=== PATIENT | female | born 1960 | race Caucasian/White ===

== ENCOUNTER 2018-12-20 21:56 | Emergency (ER) | payer SELFPAY ==
[~2018-12-20] VITALS: Ht 160 cm; Wt 74.8 kg
--- OUTSIDE RECORDS SUMMARY | 2018-12-20 22:01 | XMS REPORT | Continuity of Care Document ---
Author Organization Unknown Address Unknown Allergies Active Description Code Type Severity Reaction Onset Reported/Identified Relationship to Patient Clinical Status Yes NO NAME AVAILABLE 39916 DRUG N/A N/A Medications Medication Packaging Start Date Stop Date Route Dosage Sig INFLUENZA VAC SPLIT QUAD 0.5 ML IM THERESA 09/08/2017 Intramuscular 0.5 Prior to discharge PNEUMOCOCCAL VAC POLYVALENT 25 MCG/0.5ML IJ INJ 09/08/2017 Subcutaneous 0.5 Prior to discharge TRAZODONE HCL 100 MG PO TABS 09/08/2017 Oral 100 BEDTIME PRN OLANZAPINE 10 MG PO TBDP 09/08/2017 Oral 10 2 TIMES DAILY PRN OLANZAPINE 10 MG PO TABS 09/08/2017 Oral 10 2 TIMES DAILY PRN QUETIAPINE FUMARATE 25 MG PO TABS 09/08/2017 Oral 25 4 TIMES DAILY PRN MAGNESIUM HYDROXIDE 400 MG/5ML PO SUSP 09/08/2017 Oral 30 DAILY PRN ALUM T MAG HYDROXIDE-SIMETH 200-200-20 MG/5ML PO SUSP 09/08/2017 Oral 30 4 TIMES DAILY PRN ACETAMINOPHEN 325 MG PO TABS 09/08/2017 Oral 650 EVERY 6 HOURS PRN NICOTINE POLACRILEX 2 MG MT GUM 09/08/2017 Oral 2 EVERY 1 HOUR PRN NICOTINE POLACRILEX 2 MG MT LOZG 09/08/2017 Oral 2 EVERY 1 HOUR PRN ALBUTEROL SULFATE HFA 108 (90 BASE) MCG/ACT IN AERS 09/08/2017 Inhalation 2 EVERY 4 HOURS PRN NICOTINE 14 MG/24HR TD PT24 09/08/2017 Transdermal 1 DAILY NICOTINE 21 MG/24HR TD PT24 09/08/2017 Transdermal 1 DAILY LAMOTRIGINE 25 MG PO TABS 09/08/2017 Oral 75 2 TIMES DAILY LAMOTRIGINE 100 MG PO TABS 09/09/2017 Oral 100 DAILY AT 1900 LAMOTRIGINE 25 MG PO TABS 09/10/2017 Oral 75 DAILY LAMOTRIGINE 100 MG PO TABS 09/10/2017 Oral 100 2 TIMES DAILY Problems Date Dx Coded Attending Type Code Diagnosis Diagnosed By 09/12/2017 CHINEDU LIU V [id number] Suicidal 09/12/2017 CHINEDU LIU P 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 Results Test Result Range LIPID PANEL - 09/10/17 05:37 CHOLESTEROL 192 mg/dL <=200 HDL CHOLESTEROL 50 mg/dL 40-90 LDL CHOLESTEROL 126 mg/dL NON-HDL CHOLESTEROL 142 mg/dL 0-129 TRIGLYCERIDE 82 mg/dL 0-149 TSH - 04/12/18 13:31 TSH 0.95 mIU/L 0.40-4.50 Encounters ACCT No. Visit Date/Time Discharge Status Pt. Type Provider Facility Loc./Unit Complaint [id number] 09/08/2017 20:38:00 09/12/2017 11:40:00 DIS Inpatient CHINEDU LIU [facility] [id number] 09/08/2017 22:02:19 Document Registration [id number] 04/12/2018 13:00:00 Document Registration
--- OUTSIDE RECORDS SUMMARY | 2018-12-20 22:01 | XMS REPORT ---
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 Name Role Phone DANE SIERRA Unavailable PROBLEMS Unknown Problems ALLERGIES No Known Allergies ENCOUNTERS Encounter Location Date Diagnosis [facility] [address] [facility] [id number] [address] Apr, Arthralgia of right knee M25.561 ; Pain of left hip joint M25.552 ; Acute pain of left shoulder M25.512 ; Screening for diabetes mellitus Z13.1 ; Screening for thyroid disorder Z13.29 and Screening for hyperlipidemia Z13.220 IMMUNIZATIONS No Known Immunizations SOCIAL HISTORY Never Assessed REASON FOR VISIT Establish Care. Patient states she is having trouble moving her left shoulder/ar m. Everytime she moves, it pops and sometimes it goes numb. Injury to that arm o n February 01 while swimming and playing catch. The shoulder popped loudly and pt h as been having problems since. Right knee has been bothering patient, patient tw isted the right knee in 1996. Two weeks ago, patient was swimming and someone ac cidentally kicked her right knee. Left hip pain, no known injury. Patient says h er hips pops out of place. Pt brought in medication today. Pt has not seen a [facility] provider for "a long time." She does, see [facility] PLAN OF CARE Activity Details Follow Up 3 months or as indicated by lab Reason: VITAL SIGNS Height 63 in 2018-04-12 Weight 174 lbs 2018-04-12 Temperature 98.7 degrees Fahrenheit 2018-04-12 Heart Rate 70 bpm 2018-04-12 Respiratory Rate 20 2018-04-12 BMI 30.82 kg/m2 2018-04-12 Blood pressure systolic 128 mmHg 2018-04-12 Blood pressure diastolic 74 mmHg 2018-04-12 MEDICATIONS Medication Instructions Dosage Frequency Start Date End Date Duration Status Lamictal 100 MG Orally Twice a day 1 tablet 12h Active Latuda 20 MG Orally Once a day 1 tablet with food 24h Active RESULTS No Results PROCEDURES Procedure Date Ordered Result Body Site X-RAY EXAM OF KNEE, 3 Apr 12, 2018 X-RAY EXAM OF SHOULDER Apr 12, 2018 ASSAY THYROID STIM HORMONE Apr 12, 2018 GLYCATED HEMOGLOBIN TEST Apr 12, 2018 COMPREHEN METABOLIC PANEL Apr 12, 2018 X-RAY EXAM HIP UNI 2-3 VIEWS Apr 12, 2018 COMPLETE CBC W/AUTO DIFF WBC Apr 12, 2018 LIPID PANEL Apr 12, 2018 INSTRUCTIONS MEDICATIONS ADMINISTERED No Known Medications MEDICAL (GENERAL) HISTORY Type Description Date Medical History Bipolar Medical History PTSD Medical History Depression Medical History Vertigo Medical History Stroke 2008 Medical History COPD Surgical History Appendix Surgical History Total Hysterectomy 1980 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
[2018-12-20] MEDS ORDERED: LATUDA 20 MG (22:15)
[2018-12-20] MEDS ORDERED: TRAZODONE 100 MG (22:15)
[2018-12-20] MEDS ORDERED: KETOROLAC 30 MG/ML VIAL IM ONE ×2 (22:30→22:45)
--- NOTE | 2018-12-20 23:06 | ED Lower Extremity ---
General Chief Complaint: Lower Extremity Stated Complaint: LT HIP PAIN & SWOLLEN Nursing Triage Note: pt states she felt her hip "pop" 1 year ago, started hurting again 1 week ago and thinks it is out of place Nursing Sepsis Screen: No Definite Risk Source: patient Exam Limitations: no limitations History of Present Illness Date Seen by Provider: December 20, 2018 Time Seen by Provider: 22:11 Initial Comments This 4-year-old woman ambulates to the emergency room with a limp with complaints of left hip pain. She reports having an injury while climbing up a hill at [facility] in January. She felt her hip pop at that time and has had pain ever since. She states her hip "is going out of place a lot, I feel it moving". Pain is been worsening this week and she reports her pain is now a 10 over 10. She had been seen at [facility] last April. She reports x-rays were negative. She states MRI was advised but she cannot afford it. She used a lidocaine patch yesterday which did seem to help her quite a bit. Pain does sometimes radiate down her leg. She has occasional numbness of the left foot. She denies any bowel or bladder dysfunction. She has not taken any pain medications today. Allergies and Home Medications Allergies Coded Allergies: No Known Drug Allergies (Unverified , 12/20/18) Patient Home Medication List Home Medication List Reviewed: Yes Review of Systems Constitutional: no symptoms reported EENTM: no symptoms reported Respiratory: no symptoms reported Cardiovascular: no symptoms reported Gastrointestinal: no symptoms reported Genitourinary: no symptoms reported : No Musculoskeletal: see HPI Skin: no symptoms reported Psychiatric/Neurological: No Symptoms Reported Past Wekwuns-Qpbduh-Ontgus Hx Past Med/Social Hx: Reviewed and Corrections made Patient Social History Alcohol Use: Denies Use Recreational Drug Use: No Smoking Status: Current Everyday Smoker Type Used: Cigarettes Recent Foreign Travel: No Contact w/Someone Who Travel: No Recent Infectious Disease Expo: No Recent Hopitalizations: No Physical Abuse: No Sexual Abuse: No Fear: No Seasonal Allergies Seasonal Allergies: No Past Medical History Surgeries: Yes Hysterectomy Respiratory: Yes COPD Cardiac: No Neurological: Yes TIA, Vertigo Genitourinary: No Gastrointestinal: No Musculoskeletal: No Endocrine: No HEENT: No Cancer: No Psychosocial: Yes Anxiety, PTSD, Bipolar, Depression Integumentary: No Blood Disorders: No Physical Exam Vital Signs Vital Signs - First Documented 12/20/18 22:15 Temp 98.7 Pulse 93 Resp 18 B/P (MAP) 127/73 (91) Pulse Ox 98 O2 Delivery Room Air Capillary Refill : Less Than 3 Seconds Height, Weight, BMI Height: 5'3.00" Weight: 165lbs. oz. 74.860880ft; BMI Method:Stated General Appearance: WD/WN, no apparent distress HEENT: normal ENT inspection Neck: normal inspection Cardiovascular: regular rate, rhythm, no edema, no murmur Respiratory: lungs clear, normal breath sounds, no respiratory distress Hips: bilateral hip normal inspection, bilateral hip normal range of motion, bilateral hip no evidence of injury; left hip pain, left hip other (mild pain in the hip with external rotation and anterior palpation. Area of maximum tenderness is over the left SI joint. No tenderness or pain below the hip.) Legs: bilateral leg non-tender, bilateral leg normal inspection, bilateral leg normal range of motion, bilateral leg no evidence of injury Knees: bilateral knee non-tender, bilateral knee normal inspection, bilateral knee normal range of motion, bilateral knee no evidence of injury Ankles: bilateral ankle non-tender, bilateral ankle normal inspection, bilateral ankle normal range of motion, bilateral ankle no evidence of injury Feet: bilateral foot non-tender, bilateral foot normal inspection, bilateral foot normal range of motion, bilateral foot no evidence of injury Neurologic/Tendon: normal sensation 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, no motor/sensory deficits, alert, normal mood/affect, oriented x 3 Skin: normal color, warm/dry Progress/Results/Core Measures Results/Orders My Orders Orders - CLINT HAYES MD Ketorolac Injection (Toradol Injection) (12/20/18 22:30) Ketorolac Injection (Toradol Injection) (12/20/18 22:45) Medications Given in ED Current Medications Medications Dose Ordered Sig/Bronson Route Start Time Stop Time Status Last Admin Dose Admin Ketorolac Tromethamine 30 mg ONCE ONCE IM 12/20/18 22:30 12/20/18 22:31 DC 12/20/18 22:30 30 MG Vital Signs/I&O 12/20/18 12/20/18 22:15 23:17 Temp 98.7 Pulse 93 81 Resp 18 18 B/P (MAP) 127/73 (91) 105/61 (76) Pulse Ox 98 93 O2 Delivery Room Air Room Air Blood Pressure Mean: 91 Progress Progress Note : Progress Note Patient had good results with Toradol injection. She had improved ambulation with pain control. See discharge instructions. Departure Impression Primary Impression: Sacroiliitis Additional Impression: Left hip pain Disposition: HOME, SELF-CARE Condition: Improved Departure-Patient Inst. Decision time for Depature: 23:05 Referrals: [facility] (PCP) Primary Care Physician Patient Instructions: Sacroiliac Joint Pain Add. Discharge Instructions: You may take ibuprofen up to 600 mg every 6 hours as needed for pain. You may also take Tylenol (acetaminophen) up to 1000 mg every 6 hours as needed. Take ibuprofen with food or milk to avoid stomach upset. You may also use a lidocaine patch such as Salonpas purchased [id number]. Return to care if symptoms are worsening despite these treatments. Follow-up with your primary care provider within the next couple of weeks. All discharge instructions reviewed with patient and/or family. Voiced understanding. CLINT HAYES MD December 20, 2018 23:06
[2018-12-20 23:17] VITALS: BP 105/61
== END 2018-12-20 23:17 | disposition home or self-care (01) ==
LOC: ER FS 21:57
DX: M46.1 Sacroiliitis, not elsewhere classified (principal); M25.552 Pain in left hip; J44.9 Chronic obstructive pulmonary disease, unspecified; F41.9 Anxiety disorder, unspecified; F43.10 Post-traumatic stress disorder, unspecified; F31.9 Bipolar disorder, unspecified; F17.210 Nicotine dependence, cigarettes, uncomplicated; Z86.73 Personal history of transient ischemic attack (TIA), and cerebral infarction without residual deficits; Z90.710 Acquired absence of both cervix and uterus
CPT/HCPCS: 99284

== ENCOUNTER 2019-01-23 11:37 | Emergency (ER) | payer SELFPAY ==
[~2019-01-23] VITALS: Ht 160 cm; Wt 77.1 kg
[~2019-01-23 11:37] MED LIST: LATUDA 20 MG; TRAZODONE 100 MG
--- OUTSIDE RECORDS SUMMARY | 2019-01-23 11:43 | XMS REPORT | Continuity of Care Document ---
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, recurrent, severe with psychotic symptoms (HCC) 12/22/2018 CLINT AHYES MD Ot F17.210 NICOTINE DEPENDENCE, CIGARETTES, UNCOMPL 12/22/2018 CLINT HAYES MD Ot F31.9 BIPOLAR DISORDER, UNSPECIFIED 12/22/2018 CLINT HAYES MD Ot F41.9 ANXIETY DISORDER, UNSPECIFIED 12/22/2018 CLINT HAYES MD Ot F43.10 POST-TRAUMATIC STRESS DISORDER, UNSPECIF 12/22/2018 CLINT HAYES MD Ot J44.9 CHRONIC OBSTRUCTIVE PULMONARY DISEASE, U 12/22/2018 CLINT HAYES MD Ot M25.552 PAIN IN LEFT HIP 12/22/2018 CLINT HAYES MD Ot M46.1 SACROILIITIS, NOT ELSEWHERE CLASSIFIED 12/22/2018 CLINT HAYES MD Ot Z86.73 PRSNL HX OF TIA (TIA), AND CEREB INFRC W 12/22/2018 CLINT HAYES MD Ot Z90.710 ACQUIRED ABSENCE OF BOTH CERVIX AND UTER Procedures There is no data. Results Test Result Range LIPID PANEL - 09/10/17 05:37 CHOLESTEROL 192 mg/dL <=200 HDL CHOLESTEROL 50 mg/dL 40-90 LDL CHOLESTEROL 126 mg/dL NON-HDL CHOLESTEROL 142 mg/dL 0-129 TRIGLYCERIDE 82 mg/dL 0-149 Encounters ACCT No. Visit Date/Time Discharge Status Pt. Type Provider Facility Loc./Unit Complaint [id number] 09/08/2017 20:38:00 09/12/2017 11:40:00 DIS Inpatient CHINEDU LIU [facility] [id number] 09/08/2017 22:02:19 Document Registration [id number] 12/20/2018 21:57:00 12/20/2018 23:17:00 DIS Outpatient CLINT HAYES MD [facility] ER FS LT HIP PAIN SWOLLEN
--- NOTE | 2019-01-23 11:55 | NUR ---
UP TO BATHROOM AT THIS TIME.
--- NOTE | 2019-01-23 11:58 | ED Abdominal Pain ---
General Chief Complaint: Abdominal/GI Problems Stated Complaint: ABD CRAMPS Nursing Triage Note: ARRIVED VIA AMB TO ROOM 03. COMPLAINS OF LEFT LOWER ABD PAIN THAT RADIATES UP FOR TWO DAYS. DENIES N/V/D Sepsis Screen: No Definite Risk Source of Information: Patient Exam Limitations: No Limitations History of Present Illness Date Seen by Provider: Jan 23, 2019 Time Seen by Provider: 11:44 Initial Comments The patient presents to ER by private conveyance with chief complaint of one day progressively worsening 8 out of 10 left-sided abdominal cramping now cramping and pain. Last night when it started she was just gas and she took some Tums and drink some milk but it did not go away and only got worse. She had a bowel movement 2 days ago and was normal formed. She does not have a history of dive rticulitis, kidney stones. She has no dysuria, discharge, fevers nausea or chest pain. Says the pain starts in her left lower abdomen and radiates up towards her left upper abdomen. She has no sore throat or swollen lymph nodes. No significant weight loss or gain. She had a colonoscopy 11 years ago that was normal by a doctor in [place], [place]. She has had appendectomy, hysterectomy, bilateral oophorectomy. The patient said when she was 49 years old she was told after a episode of vertigo on getting a CT of her head that she had evidence of an old stroke which she thinks is related to her use of cocaine. Her last use was 2003. She does not drink or use drugs now but still smokes 1/2-2 packs of cigarettes per day. Allergies and Home Medications Allergies Coded Allergies: No Known Drug Allergies (Unverified , 12/20/18) Home Medications Polyethylene Glycol 3350 17 Gm Powd.pack, 17 GM PO BID PRN Prescribed by: NOLAN ARAUJO on 01/23/19 1240 Patient Home Medication List Home Medication List Reviewed: Yes Review of Systems Review of Systems Constitutional: No chills, No diaphoresis EENTM: No Blurred Vision, No Double Vision Respiratory: Denies Cough, Denies Shortness of Air Cardiovascular: Denies Chest Pain, Denies Edema Gastrointestinal: See HPI, Abdominal Pain; Denies Constipated, Denies Diarrhea, Denies Nausea Genitourinary: Denies Burning, Denies Discharge, Denies Drainage Musculoskeletal: No back pain, No joint pain Past Ervuerm-Rhnugx-Ilcliq Hx Patient Social History Alcohol Use: Denies Use Recreational Drug Use: No Smoking Status: Current Everyday Smoker Type Used: Cigarettes (1.5-2 ppd) Recent Foreign Travel: No Contact w/Someone Who Travel: No Recent Infectious Disease Expo: No Recent Hopitalizations: No Seasonal Allergies Seasonal Allergies: No Past Medical History Surgeries: Yes Appendectomy, Hysterectomy Respiratory: Yes COPD Cardiac: No Neurological: Yes Stroke, TIA, Vertigo Genitourinary: No Gastrointestinal: No Musculoskeletal: No Endocrine: No HEENT: No Cancer: No Psychosocial: Yes Anxiety, PTSD, Bipolar, Depression Integumentary: No Blood Disorders: No Physical Exam Vital Signs Vital Signs - First Documented 01/23/19 11:40 Temp 98.0 Pulse 81 Resp 16 B/P (MAP) 170/84 (112) Pulse Ox 96 O2 Delivery Room Air Capillary Refill : Less Than 3 Seconds Height/Weight/BMI Height: 5'3.00" Weight: 170lbs. oz. 77.976625ap; BMI Method:Stated General Appearance: WD/WN, mild distress HEENT: PERRL/EOMI, pharynx normal Respiratory: lungs clear, normal breath sounds, no respiratory distress, no accessory muscle use Cardiovascular: normal peripheral pulses, regular rate, rhythm, no edema Peripheral Pulses: 2+ Dorsalis Pedis (R), 2+ Left Dors-Pedis (L) Gastrointestinal: normal bowel sounds, soft, no organomegaly, no pulsatile mass, tenderness (left upper and lower quadrant) Extremities: normal range of motion, normal inspection, normal capillary refill Back: normal inspection, CVA tenderness (L) Neurologic/Psychiatric: alert, normal mood/affect, oriented x 3 Skin: normal color, warm/dry Focused Exam Lactate Level 01/23/19 12:02: Lactic Acid Level 1.12 Lactic Acid Level Laboratory Tests Test 01/23/19 12:02 Lactic Acid Level 1.12 MMOL/L (0.50-2.00) Progress/Results/Core Measures Results/Orders Lab Results Laboratory Tests Test 01/23/19 11:53 01/23/19 11:59 01/23/19 12:02 Range/Units White Blood Count 12.4 H 4.3-11.0 10^3/uL Red Blood Count 5.32 4.35-5.85 10^6/uL Hemoglobin 16.0 11.5-16.0 G/DL Hematocrit 47 35-52 % Mean Corpuscular Volume 87 80-99 FL Mean Corpuscular Hemoglobin 30 25-34 PG Mean Corpuscular Hemoglobin Concent 34 32-36 G/DL Red Cell Distribution Width 12.3 10.0-14.5 % Platelet Count 268 130-400 10^3/uL Mean Platelet Volume 10.5 H 7.4-10.4 FL Neutrophils (%) (Auto) 70 42-75 % Lymphocytes (%) (Auto) 18 12-44 % Monocytes (%) (Auto) 11 0-12 % Eosinophils (%) (Auto) 1 0-10 % Basophils (%) (Auto) 1 0-10 % Neutrophils # (Auto) 8.6 H 1.8-7.8 X 10^3 Lymphocytes # (Auto) 2.3 1.0-4.0 X 10^3 Monocytes # (Auto) 1.4 H 0.0-1.0 X 10^3 Eosinophils # (Auto) 0.1 0.0-0.3 10^3/uL Basophils # (Auto) 0.1 0.0-0.1 10^3/uL Sodium Level 138 135-145 MMOL/L Potassium Level 4.2 3.6-5.0 MMOL/L Chloride Level 99 98-107 MMOL/L Carbon Dioxide Level 25 21-32 MMOL/L Anion Gap 14 5-14 MMOL/L Blood Urea Nitrogen 22 H 7-18 MG/DL Creatinine 0.79 0.60-1.30 MG/DL Estimat Glomerular Filtration Rate > 60 BUN/Creatinine Ratio 28 Glucose Level 117 H 70-105 MG/DL Calcium Level 10.1 8.5-10.1 MG/DL Corrected Calcium 9.7 8.5-10.1 MG/DL Total Bilirubin 0.5 0.1-1.0 MG/DL Aspartate Amino Transf (AST/SGOT) 12 5-34 U/L Alanine Aminotransferase (ALT/SGPT) < 5 0-55 U/L Alkaline Phosphatase 77 40-136 U/L Total Protein 7.9 6.4-8.2 GM/DL Albumin 4.5 3.2-4.5 GM/DL Lipase 31 8-78 U/L Urine Color YELLOW Urine Clarity SLT CLOUDY Urine pH 5.5 5-9 Urine Specific [place] >=1.030 1.016-1.022 Urine Protein 1+ H NEGATIVE Urine Glucose (UA) NEGATIVE NEGATIVE Urine Ketones 1+ H NEGATIVE Urine Nitrite NEGATIVE NEGATIVE Urine Bilirubin 2+ H NEGATIVE Urine Urobilinogen 1.0 NORMAL MG/DL Urine Leukocyte Esterase NEGATIVE NEGATIVE Urine RBC (Auto) 3+ H NEGATIVE Urine RBC RARE /HPF Urine WBC 0-2 /HPF Urine Squamous Epithelial Cells 10-25 H /HPF Urine Crystals NONE /LPF Urine Bacteria LARGE H /HPF Urine Casts NONE /LPF Urine Mucus SMALL H /LPF Urine Culture Indicated NO Lactic Acid Level 1.12 0.50-2.00 MMOL/L My Orders Orders - NOLAN ARAUJO Ua Culture If Indicated (01/23/19 11:39) Cbc With Automated Diff (01/23/19 11:51) Comprehensive Metabolic Panel (01/23/19 11:51) Lipase (01/23/19 11:51) Ed Iv/Invasive Line Start (01/23/19 11:51) Ketorolac Injection (Toradol Injection) (01/23/19 12:00) Lactic Acid Analyzer (01/23/19 11:59) Ed Iv/Invasive Line Start (01/23/19 12:33) Ns Iv 500 Ml (Sodium Chloride 0.9%) (01/23/19 12:33) Abdomen (Kub) 1 View (01/23/19 12:36) Medications Given in ED Current Medications Medications Dose Ordered Sig/Bronson Route Start Time Stop Time Status Last Admin Dose Admin Ketorolac Tromethamine 30 mg ONCE ONCE IVP 01/23/19 12:00 01/23/19 12:01 DC 01/23/19 11:57 30 MG Sodium Chloride 500 ml @ 0 mls/hr Q0M ONCE IV 01/23/19 12:33 01/23/19 12:34 DC 01/23/19 12:39 500 MLS/HR Vital Signs/I&O 01/23/19 11:40 Temp 98.0 Pulse 81 Resp 16 B/P (MAP) 170/84 (112) Pulse Ox 96 O2 Delivery Room Air Blood Pressure Mean: 112 Progress Progress Note #1: Time: 11:56 Progress Note UTI versus kidney stone versus constipation/obstruction versus adhesions versus bowel ischemia versus other. Toradol for pain which she says was very effective in the past for other pain management symptoms. Blood work and urine including lactate and lipase. Progress Note #2: Time: 12:37 Progress Note The patient's belly is flat, soft and her pain is almost completely gone with just a dose of Toradol. We will obtain a flat plate x-ray and if that's okay then we'll send her home with a regimen of Gas-X and MiraLAX and follow up with primary care. Return precautions of been given. The patient agrees with this plan. Diagnostic Imaging Diagonstic Imaging: Xray Plain Films/CT/US/NM/MRI: abdomen (kub 1 v) Comments [facility]. [place], [place] NAME: DEMARIO ROBERTS [facility] REC#: [id number] PT STATUS: REG ER : 1960 PHYSICIAN: NOLAN ARAUJO MD ADMIT DATE: 01/23/19/ER FS Draft Date of Exam:01/23/19 ABDOMEN (KUB) 1 VIEW INDICATION: Left lower abdominal pain. TIME OF EXAM: 12:22 p.m. FINDINGS: A large amount of stool in the right colon is identified. Small bowel is nondilated. No free air is seen. No pathologic calcifications are identified. IMPRESSION: Moderate stool consistent with constipation. Dictated on workstation # [id number] Dict: 01/23/19 1250 Trans: 01/23/19 1253 [id number] Interpreted by: DAISY MARTINEZ MD Electronically signed by: Reviewed: Reviewed by Me Departure Impression Primary Impression: Obstipation Disposition: 01 HOME, SELF-CARE Condition: Improved Departure-Patient Inst. Decision time for Depature: 13:00 Referrals: NO,LOCAL PHYSICIAN (PCP/Family) Primary Care Physician Patient Instructions: Constipation, Adult (DC) Add. Discharge Instructions: set up machinist some [id number] Gas-X and use that in addition to taking up the MiraLAX and taking one capful putting it in a 6-8 ounces glass of fluid of your choice 2-3 times a day until you have completely cleaned out your colon. If your symptoms improve over the next couple days then you might consider doing a dose of MiraLAX a couple times a week to stay regular. If your symptoms persist and should follow-up with her primary care doctor or if it becomes severe and intractable then you should return to the nearest ER for further evaluation. All discharge instructions reviewed with patient and/or family. Voiced understanding. Scripts Polyethylene Glycol 3350 (Miralax) 17 Gm Powd.pack 17 GM PO BID PRN for 3 Days, #1 EACH 0 Refills Prov: NOLAN ARAUJO 01/23/19 NOLAN ARAUJO Jan 23, 2019 11:58
[2019-01-23] MEDS ORDERED: KETOROLAC 30 MG/ML VIAL IVP ONE (12:00)
[2019-01-23 12:01] LABS: HEMATOCRIT 47 % (35-52); MEAN CORPUSCULAR HEMOGLOBIN 30 PG (25-34); MEAN CORPUSCULAR VOLUME 87 FL (80-99); WHITE BLOOD COUNT 12.4 10^3/uL (4.3-11.0)
[2019-01-23 12:02] LABS: BASOPHILS # (AUTO) 0.1 10^3/uL (0.0-0.1); BASOPHILS % (AUTO) 1 % (0-10); EOSINOPHILS # (AUTO) 0.1 10^3/uL (0.0-0.3); EOSINOPHILS % (AUTO) 1 % (0-10); LYMPHOCYTES # (AUTO) 2.3 X 10^3 (1.0-4.0); LYMPHOCYTES % (AUTO) 18 % (12-44); MEAN CORPUSCULAR HGB CONC 34 G/DL (32-36); MEAN PLATELET VOLUME 10.5 FL (7.4-10.4); MONOCYTES # (AUTO) 1.4 X 10^3 (0.0-1.0); MONOCYTES % (AUTO) 11 % (0-12); NEUTROPHILS # (AUTO) 8.6 X 10^3 (1.8-7.8); NEUTROPHILS % (AUTO) 70 % (42-75); PLATELET COUNT 268 10^3/uL (130-400); RED CELL DISTRIBUTION WIDTH 12.3 % (10.0-14.5)
[2019-01-23 12:23] LABS: ALKALINE PHOSPHATASE 77 U/L (40-136); BILIRUBIN,TOTAL 0.5 MG/DL (0.1-1.0); BUN/CREATININE RATIO 28; CALCIUM 10.1 MG/DL (8.5-10.1); CARBON DIOXIDE 25 MMOL/L (21-32); CHLORIDE 99 MMOL/L (98-107); CREATININE SERUM 0.79 MG/DL (0.60-1.30); GFR ESTIMATED > 60; GLUCOSE 117 MG/DL (70-105); POTASSIUM 4.2 MMOL/L (3.6-5.0); SODIUM 138 MMOL/L (135-145)
[2019-01-23 12:24] LABS: ALANINE AMINOTRANSFERASE < 5 U/L (0-55); ALBUMIN 4.5 GM/DL (3.2-4.5); LIPASE 31 U/L (8-78); TOTAL PROTEIN 7.9 GM/DL (6.4-8.2)
[2019-01-23 12:30] LABS: CLARITY,URINE SLT CLOUDY; COLOR,URINE YELLOW; GLUCOSE, URINE (UA) NEGATIVE (NEGATIVE); KETONES,URINE 1+ (NEGATIVE); NITRITE,URINE NEGATIVE (NEGATIVE); PH,URINE 5.5 (5-9); PROTEIN,URINE 1+ (NEGATIVE)
[2019-01-23 12:31] LABS: BACTERIA,URINE LARGE /HPF; BILIRUBIN,URINE 2+ (NEGATIVE); LEUKOCYTE ESTERASE ,URINE NEGATIVE (NEGATIVE); RBC,URINE RARE /HPF; WBC,URINE 0-2 /HPF
[2019-01-23] MEDS ORDERED: NS IV 500 ML 500 ML IV ONE (12:33)
--- NOTE | 2019-01-23 12:34 | NUR ---
IN ROOM TALKING TO PT AT THIS TIME.
[2019-01-23] MEDS ORDERED: POLY17PO6 PO (12:40)
--- NOTE | 2019-01-23 12:54 | Diagnostic Imaging Report ---
INDICATION: Left lower abdominal pain. TIME OF EXAM: 12:22 p.m. FINDINGS: A large amount of stool in the right colon is identified. Small bowel is nondilated. No free air is seen. No pathologic calcifications are identified. IMPRESSION: Moderate stool consistent with constipation. Dictated by: Dictated on workstation # [id number]
--- NOTE | 2019-01-23 12:54 | NUR ---
PT STATES SHE FEELS MUCH BETTER.
[2019-01-23 13:16] VITALS: BP 147/84
== END 2019-01-23 13:16 | disposition home or self-care (01) ==
LOC: EDUNIT# 11:37 → ER FS 11:39
DX: K59.00 Constipation, unspecified (principal); J44.9 Chronic obstructive pulmonary disease, unspecified; F31.9 Bipolar disorder, unspecified; F43.10 Post-traumatic stress disorder, unspecified; F41.9 Anxiety disorder, unspecified; F17.210 Nicotine dependence, cigarettes, uncomplicated; Z90.49 Acquired absence of other specified parts of digestive tract; Z90.710 Acquired absence of both cervix and uterus; Z90.722 Acquired absence of ovaries, bilateral; Z86.73 Personal history of transient ischemic attack (TIA), and cerebral infarction without residual deficits
CPT/HCPCS: 36415; 74018; 80053; 81000; 83605; 83690; 85025; 96361; 96374

== ENCOUNTER 2019-01-30 21:28 | Emergency (ER) | payer SELFPAY ==
[~2019-01-30] VITALS: Ht 160 cm; Wt 70.3 kg
[~2019-01-30 21:28] MED LIST changes: +POLY17PO6 PO
--- OUTSIDE RECORDS SUMMARY | 2019-01-30 21:33 | XMS REPORT | Continuity of Care Document ---
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, recurrent, severe with psychotic symptoms (HCC) 12/20/2018 CLINT HAYES MD Ot F17.210 NICOTINE DEPENDENCE, CIGARETTES, UNCOMPL 12/20/2018 CLINT HAYES MD Ot F31.9 BIPOLAR DISORDER, UNSPECIFIED 12/20/2018 CLINT HAYES MD Ot F41.9 ANXIETY DISORDER, UNSPECIFIED 12/20/2018 CLINT HAYES MD Ot F43.10 POST-TRAUMATIC STRESS DISORDER, UNSPECIF 12/20/2018 CLINT HAYES MD Ot J44.9 CHRONIC OBSTRUCTIVE PULMONARY DISEASE, U 12/20/2018 CLINT HAYES MD Ot M25.552 PAIN IN LEFT HIP 12/20/2018 CLINT HAYES MD Ot M46.1 SACROILIITIS, NOT ELSEWHERE CLASSIFIED 12/20/2018 CLINT HAYES MD Ot Z86.73 PRSNL HX OF TIA (TIA), AND CEREB INFRC W 12/20/2018 CLINT HAYES MD Ot Z90.710 ACQUIRED ABSENCE OF BOTH CERVIX AND UTER 12/22/2018 CLINT HAYES MD Ot F17.210 NICOTINE DEPENDENCE, CIGARETTES, UNCOMPL [...] ACQUIRED ABSENCE OF BOTH CERVIX AND UTER 01/25/2019 NOLAN ARAUJO MD Ot F17.210 NICOTINE DEPENDENCE, CIGARETTES, UNCOMPL 01/25/2019 NOLAN ARAUJO MD Ot F31.9 BIPOLAR DISORDER, UNSPECIFIED 01/25/2019 NOLAN ARAUJO MD Ot F41.9 ANXIETY DISORDER, UNSPECIFIED 01/25/2019 NOLAN ARAUJO MD Ot F43.10 POST-TRAUMATIC STRESS DISORDER, UNSPECIF 01/25/2019 NOLAN ARAUJO MD Ot J44.9 CHRONIC OBSTRUCTIVE PULMONARY DISEASE, U 01/25/2019 NOLAN ARAUJO MD Ot K59.00 CONSTIPATION, UNSPECIFIED 01/25/2019 NOLAN ARAUJO MD Ot R10.32 LEFT LOWER QUADRANT PAIN 01/25/2019 NOLAN ARAUJO MD Ot Z86.73 PRSNL HX OF TIA (TIA), AND CEREB INFRC W 01/25/2019 NOLAN ARAUJO MD Ot Z90.49 ACQUIRED ABSENCE OF OTHER SPECIFIED PART 01/25/2019 NOLAN ARAUJO MD Ot Z90.710 ACQUIRED ABSENCE OF BOTH CERVIX AND UTER 01/25/2019 NOLAN ARAUJO MD Ot Z90.722 ACQUIRED ABSENCE OF OVARIES, BILATERAL Procedures There is no data. Results Test Result Range LIPID PANEL - 09/10/17 05:37 CHOLESTEROL 192 mg/dL <=200 HDL CHOLESTEROL 50 mg/dL 40-90 LDL CHOLESTEROL 126 mg/dL NON-HDL CHOLESTEROL 142 mg/dL 0-129 TRIGLYCERIDE 82 mg/dL 0-149 Complete blood count (CBC) with automated white blood cell (WBC) differential - 01/23/19 11:53 Blood leukocytes automated count (number/volume) 12.4 10*3/uL 4.3-11.0 Blood erythrocytes automated count (number/volume) 5.32 10*6/uL 4.35-5.85 Venous blood hemoglobin measurement (mass/volume) 16.0 g/dL 11.5-16.0 Blood hematocrit (volume fraction) 47 % 35-52 Automated erythrocyte mean corpuscular volume 87 [foz_us] 80-99 Automated erythrocyte mean corpuscular hemoglobin (mass per erythrocyte) 30 pg 25-34 Automated erythrocyte mean corpuscular hemoglobin concentration measurement (mass/volume) 34 g/dL 32-36 Automated erythrocyte distribution width ratio 12.3 % 10.0- 14.5 Automated blood platelet count (count/volume) 268 10*3/uL 130-400 Automated blood platelet mean volume measurement 10.5 [foz_us] 7.4-10.4 Automated blood neutrophils/100 leukocytes 70 % 42-75 Automated blood lymphocytes/100 leukocytes 18 % 12-44 Blood monocytes/100 leukocytes 11 % 0-12 Automated blood eosinophils/100 leukocytes 1 % 0-10 Automated blood basophils/100 leukocytes 1 % 0-10 Blood neutrophils automated count (number/volume) 8.6 10*3 1.8-7.8 Blood lymphocytes automated count (number/volume) 2.3 10*3 1.0-4.0 Blood monocytes automated count (number/volume) 1.4 10*3 0.0- 1.0 Automated eosinophil count 0.1 10*3/uL 0.0-0.3 Automated blood basophil count (count/volume) 0.1 10*3/uL 0.0-0.1 Comprehensive metabolic panel - 01/23/19 11:53 Serum or plasma sodium measurement (moles/volume) 138 mmol/L 135-145 Serum or plasma potassium measurement (moles/volume) 4.2 mmol/L 3.6-5.0 Serum or plasma chloride measurement (moles/volume) 99 mmol/L 98-107 Carbon dioxide 25 mmol/L 21-32 Serum or plasma anion gap determination (moles/volume) 14 mmol/L 5-14 Serum or plasma urea nitrogen measurement (mass/volume) 22 mg/dL 7-18 Serum or plasma creatinine measurement (mass/volume) 0.79 mg/dL 0.60-1.30 Serum or plasma urea nitrogen/creatinine mass ratio 28 NRG Serum or plasma creatinine measurement with calculation of estimated glomerular filtration rate > NRG Serum or plasma glucose measurement (mass/volume) 117 mg/dL 70-105 Serum or plasma calcium measurement (mass/volume) 10.1 mg/dL 8.5-10.1 Serum or plasma total bilirubin measurement (mass/volume) 0.5 mg/dL 0.1-1.0 Serum or plasma alkaline phosphatase measurement (enzymatic activity/volume) 77 U/L 40-136 Serum or plasma aspartate aminotransferase measurement (enzymatic activity/volume) 12 U/L 5-34 Serum or plasma alanine aminotransferase measurement (enzymatic activity/volume) < U/L 0-55 Serum or plasma protein measurement (mass/volume) 7.9 g/dL 6.4-8.2 Serum or plasma albumin measurement (mass/volume) 4.5 g/dL 3.2-4.5 CALCIUM CORRECTED 9.7 mg/dL 8.5-10.1 Lipase - 01/23/19 11:53 Lipase 31 U/L 8-78 Complete urinalysis with reflex to culture - 01/23/19 11:59 Urine color determination YELLOW NRG Urine clarity determination SLT CLOUDY NRG Urine pH measurement by test strip 5.5 5-9 Specific gravity of urine by test strip >= 1.016-1.022 Urine protein assay by test strip, semi-quantitative 1+ NEGATIVE Urine glucose detection by automated test strip NEGATIVE NEGATIVE Erythrocytes detection in urine sediment by light microscopy 3+ NEGATIVE Urine ketones detection by automated test strip 1+ NEGATIVE Urine nitrite detection by test strip NEGATIVE NEGATIVE Urine total bilirubin detection by test strip 2+ NEGATIVE Urine urobilinogen measurement by automated test strip (mass/volume) 1.0 mg/dL NORMAL Urine leukocyte esterase detection by dipstick NEGATIVE NEGATIVE Automated urine sediment erythrocyte count by microscopy (number/high power field) RARE NRG Automated urine sediment leukocyte count by microscopy (number/high power field) [HPF] NRG Bacteria detection in urine sediment by light microscopy LARGE NRG Squamous epithelial cells detection in urine sediment by light microscopy 10-25 NRG Crystals detection in urine sediment by light microscopy NONE NRG Casts detection in urine sediment by light microscopy NONE NRG Mucus detection in urine sediment by light microscopy SMALL NRG Complete urinalysis with reflex to culture NO NRG Blood lactic acid measurement (moles/volume) - 01/23/19 12:02 Blood lactic acid measurement (moles/volume) 1.12 mmol/L 0.50- 2.00 Encounters ACCT No. Visit Date/Time Discharge Status Pt. Type Provider Facility Loc./Unit Complaint [id number] 09/08/2017 20:38:00 09/12/2017 11:40:00 [id number] 09/08/2017 22:02:19 Document Registration [id number] 01/23/2019 11:39:00 01/23/2019 13:16:00 DIS Outpatient GAYLE CUETO, NOLAN [facility] FS ABD CRAMPS [id number] 12/20/2018 21:57:00 12/20/2018 23:17:00 DIS Emergency ABIGAIL CUETO, CLINT Malin [facility] ER FS LT HIP PAIN SWOLLEN
[2019-01-30 22:36] LABS: BILIRUBIN,URINE 2+ (NEGATIVE); CLARITY,URINE CLEAR; COLOR,URINE YELLOW; GLUCOSE, URINE (UA) NEGATIVE (NEGATIVE); KETONES,URINE TRACE (NEGATIVE); LEUKOCYTE ESTERASE ,URINE NEGATIVE (NEGATIVE); NITRITE,URINE NEGATIVE (NEGATIVE); PH,URINE 6.5 (5-9); PROTEIN,URINE TRACE (NEGATIVE)
[2019-01-30 22:37] LABS: SQUAMOUS EPITHELIAL CELL,UR 0-2 /HPF
--- NOTE | 2019-01-30 23:37 | ED GI ---
General Chief Complaint: Abdominal/GI Problems Stated Complaint: LOW ABD CRAMPING Nursing Triage Note: PT. STATED HER LOWER ABD PAIN STARTED AROUND 1400 TODAY. SHE HAS HAD 2 BOWEL MOVEMENTS TODAY. THE ABD. PAIN IS LOWER PELVIC AREA. Sepsis Screen: No Definite Risk Source of Information: Patient, Old Records, RN Notes Reviewed Exam Limitations: No Limitations History of Present Illness Date Seen by Provider: Jan 30, 2019 Time Seen by Provider: 21:47 Allergies and Home Medications Allergies Coded Allergies: No Known Drug Allergies (Unverified , 01/30/19) Home Medications Polyethylene Glycol 3350 17 Gm Powd.pack, 17 GM PO BID PRN Prescribed by: NOLAN ARAUJO on 01/23/19 1240 Past Unydcmt-Rcmswg-Lagxst Hx Patient Social History Type Used: Cigarettes Recent Foreign Travel: No Contact w/Someone Who Travel: No Recent Infectious Disease Expo: No Recent Hopitalizations: No Physical Abuse: No Sexual Abuse: No Mistreated: No Fear: No Seasonal Allergies Seasonal Allergies: No Past Medical History Surgeries: Yes Appendectomy, Hysterectomy Respiratory: Yes COPD Cardiac: No Neurological: Yes Stroke, TIA, Vertigo Genitourinary: No Gastrointestinal: No Musculoskeletal: No Endocrine: No HEENT: No Cancer: No Psychosocial: Yes Anxiety, PTSD, Bipolar, Depression Integumentary: No Blood Disorders: No Physical Exam Vital Signs Vital Signs - First Documented 01/30/19 22:20 Temp 98.6 Pulse 80 Resp 22 B/P (MAP) 143/93 (110) O2 Delivery Room Air Capillary Refill : Less Than 3 Seconds Height/Weight/BMI Height: 5'3.00" Weight: 155lbs. oz. 70.495500zh; BMI Method:Stated Progress/Results/Core Measures Results/Orders Lab Results Laboratory Tests Test 01/30/19 22:22 Range/Units Urine Color YELLOW Urine Clarity CLEAR Urine pH 6.5 5-9 Urine Specific [place] 1.025 H 1.016-1.022 Urine Protein TRACE NEGATIVE Urine Glucose (UA) NEGATIVE NEGATIVE Urine Ketones TRACE H NEGATIVE Urine Nitrite NEGATIVE NEGATIVE Urine Bilirubin 2+ H NEGATIVE Urine Urobilinogen 4.0 NORMAL MG/DL Urine Leukocyte Esterase NEGATIVE NEGATIVE Urine RBC (Auto) 1+ H NEGATIVE Urine RBC 2-5 H /HPF Urine WBC NONE /HPF Urine Squamous Epithelial Cells 0-2 /HPF Urine Crystals NONE /LPF Urine Bacteria NONE /HPF Urine Casts NONE /LPF Urine Mucus TRACE /LPF Urine Culture Indicated NO My Orders Orders - LOIS ELIZALDE DO Ua Culture If Indicated (01/30/19 21:34) Abdomen Flat & Upright/Decub (01/30/19 23:00) Bisacodyl Suppository (Dulcolax Supposit (01/30/19 23:45) Medications Given in ED Current Medications Medications Dose Ordered Sig/Bronson Route Start Time Stop Time Status Last Admin Dose Admin Bisacodyl 10 mg ONCE ONCE GA 01/30/19 23:45 01/30/19 23:46 01/30/19 23:36 10 MG Vital Signs/I&O 01/30/19 22:20 Temp 98.6 Pulse 80 Resp 22 B/P (MAP) 143/93 (110) O2 Delivery Room Air Blood Pressure Mean: 110 Departure Impression Primary Impression: Abdominal pain Additional Impression: Fecal impaction of rectum Disposition: HOME, SELF-CARE Condition: Stable Departure-Patient Inst. Decision time for Depature: 23:35 Referrals: [facility] [place] Patient Instructions: Fecal Impaction Add. Discharge Instructions: All discharge instructions reviewed with patient and/or family. Voiced understanding. IF NO RESULTS WITH THE SUPPOSITORY THEN RECOMMEND PICKING UP AN ENEMA THAT IS AVAILABLE OVER THE COUNTER. DAILY MIRALAX IS ALSO RECOMMENDED. IT'S ALSO AVAILABLE OVER THE COUNTER. LOIS ELIZALDE DO Jan 30, 2019 23:36
[2019-01-30 23:41] VITALS: BP 143/93
[2019-01-30] MEDS ORDERED: BISACODYL 10 MG SUPP (DULCOLAX) PR ONE (23:45)
--- NOTE | 2019-01-31 06:37 | Diagnostic Imaging Report ---
Abdomen supine and erect at 1050h. INDICATION: Low abdominal pain The recent abdomen exam of 01/23/2019 revealed at least moderate amount of fecal material throughout the ascending and transverse colon. On this study there is much less fecal material in the ascending colon but there is still a fair amount of fecal material in the transverse colon. The bowel gas pattern itself remains nonspecific. There is no sign of a bowel obstruction. There is no mass or organomegaly. There is a 5 MM calcification along the expected path of the left ureter. This was also present on the prior exam and has not changed. This does not have the typical appearance of a ureteral stone but that possibility should still be considered. If further study is desired, then CT would be recommended. The osseous structures are intact. IMPRESSION: 1. The bowel gas pattern remains nonspecific. There still is no evidence for a bowel obstruction. 2. There is much less fecal material overlying the ascending colon than noted on the prior exam. There still is a fair amount of residual fecal material in the transverse colon however. 3. The calcification along the expected path of the left ureter is unlikely to represent a ureteral stone. Recommendations as above. Dictated by: Dictated on workstation # [id number]
== END 2019-01-30 23:42 | disposition home or self-care (01) ==
LOC: EDUNIT# 21:28 → ER FS 21:29
DX: K56.41 Fecal impaction (principal); J44.9 Chronic obstructive pulmonary disease, unspecified; F31.9 Bipolar disorder, unspecified; F43.10 Post-traumatic stress disorder, unspecified; F41.9 Anxiety disorder, unspecified; Z86.73 Personal history of transient ischemic attack (TIA), and cerebral infarction without residual deficits; Z90.49 Acquired absence of other specified parts of digestive tract; Z90.710 Acquired absence of both cervix and uterus
CPT/HCPCS: 74019; 81000

== ENCOUNTER → 2019-06-12 | Outpatient (CLI) | payer SELFPAY ==
--- NOTE | 2019-06-12 09:15 | Diagnostic Imaging Report ---
Indication: Low back pain AP and lateral views of the lumbar spine show normal vertebral body alignment. There is slight deformity superior endplate of L3 consistent with a compression fracture of indeterminate age. Disc spaces are well-maintained. IMPRESSION: Compression deformity superior endplate of L3 of indeterminate age. Dictated by: Dictated on workstation # [id number]
--- NOTE | 2019-06-12 09:16 | Diagnostic Imaging Report ---
Indication: Left hip pain 3 views of left hip show no fracture, dislocation or other acute abnormalities. Joint spaces are well-maintained. IMPRESSION: Negative left hip Dictated by: Dictated on workstation # [id number]
== END ==
LOC: RAD FS 08:29
PROVIDERS: ATTEND Nurse Practitioner
DX: M54.40 Lumbago with sciatica, unspecified side (principal); M25.552 Pain in left hip; M48.56XA Collapsed vertebra, not elsewhere classified, lumbar region, initial encounter for fracture
CPT/HCPCS: 72100; 73502

== ENCOUNTER 2019-06-21 19:26 | Emergency (ER) | payer SELFPAY ==
[~2019-06-21] VITALS: Ht 160 cm; Wt 79.0 kg
[2019-06-21] MEDS ORDERED: KETOROLAC 60 MG/2 ML VIAL IM STA (20:13)
[2019-06-21] MEDS ORDERED: predniSONE 20 MG TAB PO ONE (20:15)
[2019-06-21] MEDS ORDERED: PRD20T PO (20:35)
--- NOTE | 2019-06-21 20:35 | ED Hip Pain/Injury ---
General Chief Complaint: Hip/Pelvic Problems Stated Complaint: LT HIP PAIN Nursing Triage Note: Patient states that she has been having left hip pain today. Patient rates her pain at a 10 on the 1-10 pain scale. Patient also states that she had an xray earlier this month and today she states she got a call that she had a fracture in her lumbar spine. She is supposed to referred to a surgeon but doesn't know who at this time. Patient denies falling or injury. Source: patient Exam Limitations: no limitations History of Present Illness Date Seen by Provider: Jun 21, 2019 Time Seen by Provider: 20:05 Initial Comments Here with report of left hip pain. Had x-rays a few days ago and was told that she had a fracture in her back and she needed follow-up with a surgeon but she does not know what that is. Records review reveals that she has age indeterminate compression fracture of the endplate of L3. There is no retropulsion. Hip x-ray was without acute findings. No new injuries. She has pain that radiates from her left hip to her ankle. She walks with a cane which is typical. She is on meloxicam and tizanidine which is not helping. Does have previous history of addiction. She states Toradol as helped her significantly the past. Denies bowel or bladder incontinence, fever, numbness between her legs or weakness. Timing/Duration: week, getting worse Severity: moderate Location: hip (L) Method of Injury: unknown Modifying Factors: Improves With Immobilization; Worse With Movement Associated Symptoms: No fever; groin pain, pain radiating to knees Allergies and Home Medications Allergies Coded Allergies: No Known Drug Allergies (Unverified , 01/30/19) Home Medications Polyethylene Glycol 3350 17 Gm Powd.pack, 17 GM PO BID PRN Prescribed by: NOLAN ARAUJO on 01/23/19 1240 Patient Home Medication List Home Medication List Reviewed: Yes Review of Systems Constitutional: see HPI; No chills, No fever Respiratory: no symptoms reported Cardiovascular: no symptoms reported Musculoskeletal: see HPI, back pain, joint pain, muscle pain Skin: no symptoms reported Psychiatric/Neurological: See HPI Past Mdzvodw-Vbseck-Htpkdj Hx Past Med/Social Hx: Reviewed Nursing Past Med/Soc Hx Patient Social History Alcohol Use: Denies Use Recreational Drug Use: No Smoking Status: Current Everyday Smoker Type Used: Cigarettes Recent Foreign Travel: No Contact w/Someone Who Travel: No Recent Infectious Disease Expo: No Recent Hopitalizations: No Physical Abuse: No Sexual Abuse: No Mistreated: No Fear: No Seasonal Allergies Seasonal Allergies: No Past Medical History Surgeries: Yes Appendectomy, Hysterectomy Respiratory: Yes COPD Cardiac: No Neurological: Yes Stroke, TIA, Vertigo Genitourinary: No Gastrointestinal: No Musculoskeletal: No Endocrine: No HEENT: No Cancer: No Psychosocial: Yes Anxiety, PTSD, Bipolar, Depression Integumentary: No Blood Disorders: No Family Medical History Reviewed Nursing Family Hx No Pertinent Family Hx Physical Exam Vital Signs Vital Signs - First Documented 06/21/19 19:31 Temp 36.7 Pulse 85 Resp 20 B/P (MAP) 136/66 (89) Pulse Ox 96 O2 Delivery Room Air Capillary Refill : Less Than 3 Seconds Height, Weight, BMI Height: 5'3.00" Weight: 155lbs. oz. 70.584792yt; 30.00 BMI Method:Stated General Appearance: No Apparent Distress, WD/WN Cardiovascular: Regular Rate, Rhythm, No Murmur Respiratory: Lungs Clear, Normal Breath Sounds Gastrointestinal: Non Tender, Soft Back: No Muscle Spasm; Other (tender to the area of the low back) Extremity: No Pedal Edema; Pelvis Stable Neurologic/Psychiatric: Oriented x3, No Motor/Sensory Deficits Skin: Normal Color, Warm/Dry Progress/Results/Core Measures Results/Orders My Orders Orders - YINA WONG MD Ketorolac Injection (Toradol Injection) (06/21/19 20:13) Prednisone Tablet (Deltasone Tablet) (06/21/19 20:15) Medications Given in ED Current Medications Medications Dose Ordered Sig/Bronson Route Start Time Stop Time Status Last Admin Dose Admin Prednisone 40 mg ONCE ONCE PO 06/21/19 20:15 06/21/19 20:16 DC 06/21/19 20:20 40 MG Vital Signs/I&O 06/21/19 19:31 Temp 36.7 Pulse 85 Resp 20 B/P (MAP) 136/66 (89) Pulse Ox 96 O2 Delivery Room Air Blood Pressure Mean: 89 POS Progress Progress Note : Progress Note Seen and evaluated. Previous x-rays reviewed. Toradol 60 mg IM and prednisone 40 mg by mouth. Discharged home with return precautions. Patient verbalize understanding instructions and agreement with plan. Departure Impression Primary Impression: Sciatica, left side Disposition: HOME, SELF-CARE Condition: Stable Departure-Patient Inst. Decision time for Depature: 20:34 Referrals: [facility] (PCP) Primary Care Physician ALEJANDRINA VÁZQUEZ APRN (Family) Primary Care Physician Patient Instructions: Sciatica (DC) Add. Discharge Instructions: All discharge instructions reviewed with patient and/or family. Voiced understanding. Continue your meloxicam but started tomorrow morning. Take other medications as directed. Follow-up with your doctor in 1-2 days for recheck. Return for worse pain, weakness, numbness between your legs, difficulty with walking or going to the bathroom or other concerns as needed. Scripts Prednisone (Prednisone) 20 Mg Tab 40 MG PO DAILY, #10 TAB 0 Refills Prov: YINA WONG MD 06/21/19 YINA WONG MD Jun 21, 2019 20:35 POS
[2019-06-21 20:49] VITALS: BP 128/70
== END 2019-06-21 20:49 | disposition home or self-care (01) ==
LOC: EDUNIT# 19:26 → ER FS 19:28
DX: M54.32 Sciatica, left side (principal); J44.9 Chronic obstructive pulmonary disease, unspecified; F41.9 Anxiety disorder, unspecified; F43.10 Post-traumatic stress disorder, unspecified; F31.9 Bipolar disorder, unspecified; F17.210 Nicotine dependence, cigarettes, uncomplicated; Z87.81 Personal history of (healed) traumatic fracture; Z90.49 Acquired absence of other specified parts of digestive tract; Z86.73 Personal history of transient ischemic attack (TIA), and cerebral infarction without residual deficits; Z90.710 Acquired absence of both cervix and uterus
CPT/HCPCS: 96372; 99284

== ENCOUNTER 2019-07-07 23:49 | Emergency (ER) | payer SELFPAY ==
[~2019-07-07] VITALS: Ht 160 cm; Wt 81.2 kg
[~2019-07-07 23:49] MED LIST changes: +PRD20T PO
--- NOTE | 2019-07-08 00:12 | ED Cough/URI ---
General Chief Complaint: Cough/Cold/Flu Symptoms Stated Complaint: COUGH Nursing Triage Note: Patient states that she was seen 06/30/19 at the walk in clinic and diagnosed with a viral respiratory infection. Patient is complaining of cough and intermittent shortness of breath that hasn't gotten any better since being seen on the . Sepsis Screen: No Definite Risk History of Present Illness Date Seen by Provider: Jul 08, 2019 Time Seen by Provider: 00:07 Initial Comments 59-year-old female has no chronic lung disease started with dry cough and head congestion a week ago seen and started on an inhaler has not improved subjective fevers no ST or earache specifically no V or D no known exposure to illness Allergies and Home Medications Allergies Coded Allergies: No Known Drug Allergies (Unverified , 01/30/19) Home Medications Azithromycin 250 Mg Tablet, 250 MG PO UD TAKE 2 TABLETS ON DAY ONE THEN TAKE 1 TABLET DAILY FOR FOUR MORE DAYS Prescribed by: SHREYA RAGLAND on 07/08/19 001 Polyethylene Glycol 3350 17 Gm Powd.pack, 17 GM PO BID PRN Prescribed by: NOLAN ARAUJO on 01/23/19 1240 Prednisone 20 Mg Tab, 40 MG PO DAILY Prescribed by: YINA WONG on 06/21/192034 Prednisone 20 Mg Tab, 40 MG PO DAILY Prescribed by: SHREYA RAGLAND on 07/08/1912 Patient Home Medication List Home Medication List Reviewed: Yes Review of Systems Review of Systems Constitutional: fever (subjective) EENTM: No ear pain, No throat pain Respiratory: cough, short of breath Cardiovascular: no symptoms reported; No chest pain, No palpitations, No syncope Gastrointestinal: No no symptoms reported Genitourinary: No no symptoms reported Past Qbzdlcp-Hctumd-Ypianc Hx Patient Social History Alcohol Use: Denies Use Recreational Drug Use: No Smoking Status: Current Everyday Smoker Type Used: Cigarettes Recent Foreign Travel: No Contact w/Someone Who Travel: No Recent Infectious Disease Expo: No Recent Hopitalizations: No Physical Abuse: No Sexual Abuse: No Mistreated: No Fear: No Seasonal Allergies Seasonal Allergies: No Past Medical History Surgeries: Yes Appendectomy, Hysterectomy Respiratory: Yes COPD Cardiac: No Neurological: Yes Stroke, TIA, Vertigo Genitourinary: No Gastrointestinal: No Musculoskeletal: No Endocrine: No HEENT: No Cancer: No Psychosocial: Yes Anxiety, PTSD, Bipolar, Depression Integumentary: No Blood Disorders: No Family Medical History No Pertinent Family Hx Physical Exam Vital Signs - First Documented 07/07/19 23:55 Temp 36.0 Pulse 83 Resp 20 B/P (MAP) 142/92 (109) Pulse Ox 96 O2 Delivery Room Air Capillary Refill : Less Than 3 Seconds Height: 5'3.00" Weight: 155lbs. oz. 70.360173uf; 31.00 BMI Method:Stated General Appearance: no apparent distress Eyes: Bilateral Eye PERRL, Bilateral Eye EOMI HEENT: PERRL/EOMI, TMs normal, pharynx normal Neck: supple Respiratory: lungs clear; No rales, No wheezing Cardiovascular: regular rate, rhythm Gastrointestinal: normal bowel sounds Extremities: normal inspection, no pedal edema Progress/Results/Core Measures Suspected Sepsis Recent Fever Within 48 Hours: No Infection Criteria Present: None New/Unexplained Altered Menta: No Sepsis Screen: No Definite Risk SIRS Temperature: Pulse: 83 Respiratory Rate: 20 Blood Pressure 142 /92 Mean: 109 Results/Orders My Orders Orders - SHREYA RAGLAND MD Chest Pa/Lat (2 View) (07/08/19 00:06) Vital Signs/I&O 07/07/19 07/07/19 23:55 23:55 Temp 36.0 Pulse 83 Resp 20 B/P (MAP) 142/92 (109) Pulse Ox 96 O2 Delivery Room Air Room Air Capillary Refill : Less Than 3 Seconds Blood Pressure Mean: 109 POS Diagnostic Imaging Comments CXR - No definite infiltrate or consolidation Departure Impression Primary Impression: Bronchitis Disposition: 01 HOME, SELF-CARE Condition: Stable Departure-Patient Inst. Referrals: [facility] [place]) Primary Care Physician ALEJANDRINA VÁZQUEZ APRN (Family) Primary Care Physician Patient Instructions: Acute Bronchitis, Adult (DC) Add. Discharge Instructions: continue inhaler as prescribed Scripts Prednisone (Prednisone) 20 Mg Tab 40 MG PO DAILY, #10 TAB 0 Refills Prov: SHREYA RAGLAND MD 07/08/19 Azithromycin (Azithromycin) 250 Mg Tablet 250 MG PO UD, #6 TAB TAKE 2 TABLETS ON DAY ONE THEN TAKE 1 TABLET DAILY FOR FOUR MORE DAYS Prov: SHREYA RAGLAND MD 07/08/19 SHREYA RAGLAND MD Jul 08, 2019 00:12 POS
[2019-07-08] MEDS ORDERED: PRD20T PO (00:13)
[2019-07-08] MEDS ORDERED: AZIT250T12 PO (00:13)
[2019-07-08 00:28] VITALS: BP 142/92
[2019-07-08] MEDS ORDERED: AZITHROMYCIN 250 MG TAB (ZITHROMAX) PO ONE (00:30)
--- NOTE | 2019-07-08 07:10 | Diagnostic Imaging Report ---
INDICATION: Cough. COMPARISON: None available. TECHNIQUE: 2 radiographs of the chest dated 07/07/2019. FINDINGS: The cardiac silhouette and pulmonary vasculature are within normal limits. The lungs are clear of focal pulmonary opacity. No pleural effusion. No pneumothorax. No acute osseous abnormality. IMPRESSION: No acute cardiopulmonary abnormality. Dictated by: Dictated on workstation # [id number]
--- OUTSIDE RECORDS SUMMARY | 2019-08-02 16:07 | XMS REPORT | Continuity of Care Document ---
Author Organization Unknown Address Unknown Phone Unavailable Allergies Active Description Code Type Severity Reaction Onset Reported/Identified Relationship to Patient Clinical Status Yes NO NAME AVAILABLE [id number] DRUG N/A N/A Yes No Known Drug Allergies [id number] Drug Allergy Unknown N/A 01/30/2019 Medications Medication Packaging Start Date St op Date Route Dosage Sig INFLUENZA VAC SPLIT QUAD 0.5 ML IM THERESA 09/08/2017 Intramuscular 0.5 Prior to discharge PNEUMOCOCCAL VAC POLYVALENT 25 MCG/0.5ML I J INJ 09/08/2017 Subcutaneous 0.5 Prior to discharge TRAZODONE HCL 100 MG PO TABS 09/08/2017 Oral 100 BEDTIME PRN OLANZAPINE 10 MG PO TBDP 09/08/2017 Oral 10 2 TI MES DAILY PRN OLANZAPINE 10 MG PO TABS 09/08/2017 Oral 10 2 TI MES DAILY PRN QUETIAPINE FUMARATE 25 MG PO [...] 1 HOUR PRN ALBUTEROL SULFATE HFA 108 (9 0 BASE) MCG/ACT IN AERS 09/08/2017 Inhalation 2 EVERY 4 HOURS PRN NICOTINE 14 MG/24HR TD PT24 09/08/2017 Transdermal 1 DAILY NICOTINE 21 MG/24HR TD PT24 09/08/2017 Transdermal 1 DAILY LAMOTRIGINE 25 MG PO TABS 09/08/2017 Oral 75 2 TI MES DAILY LAMOTRIGINE 100 MG PO TABS 09/09/2017 Oral 100 DAILY AT 1900 LAMOTRIGINE 25 MG PO TABS 09/10/2017 Oral 75 FELIX Y LAMOTRIGINE 100 MG PO TABS 09/10/2017 Oral 100 2 TIMES DAILY Problems Date Dx Coded Attending Type Code Diagnosis Diagnosed By 09/12/2017 CHINEDU LIU V [id number] Suicidal 09/12/2017 CHINEDU LIU P F33.3 Major [...] ACQUIRED ABSENCE OF BOTH CERVIX AND UTER 01/23/2019 NOLAN ARAUJO MD Ot F17.210 NICOTINE DEPENDENCE, CIGARETTES, UNCOMPL 01/23/2019 NOLAN ARAUJO MD Ot F31. 9 BIPOLAR DISORDER, UNSPECIFIED 01/23/2019 NOLAN ARAUJO MD Ot F41. 9 ANXIETY DISORDER, UNSPECIFIED 01/23/2019 NOLAN ARAUJO MD J Ot F43. 10 POST-TRAUMATIC STRESS DISORDER, UNSPECIF 01/23/2019 NOLAN ARAUJO MD Ot J44. 9 CHRONIC OBSTRUCTIVE PULMONARY DISEASE, U 01/23/2019 NOLAN ARAUJO MD Ot K59. 00 CONSTIPATION, UNSPECIFIED 01/23/2019 NOLAN ARAUJO MD Ot R10. 32 LEFT LOWER QUADRANT PAIN 01/23/2019 NOLAN ARAUJO MD Ot Z86. 73 PRSNL HX OF TIA (TIA), AND CEREB INFRC W 01/23/2019 NOLAN ARAUJO MD Ot Z90. 49 ACQUIRED ABSENCE OF OTHER SPECIFIED PART 01/23/2019 NOLAN ARAUJO MD Ot Z90.710 ACQUIRED ABSENCE OF BOTH CERVIX AND UTER 01/23/2019 NOLAN ARAUJO MD Ot Z90.722 ACQUIRED ABSENCE OF OVARIES, BILATERAL 01/25/2019 NOLAN ARAUJO MD Ot F17.210 NICOTINE DEPENDENCE, CIGARETTES, UNCOMPL 01/25/2019 NOLAN ARAUJO MD Ot F31. 9 BIPOLAR DISORDER, UNSPECIFIED 01/25/2019 NOLAN ARAUJO MD Ot F41. 9 ANXIETY DISORDER, UNSPECIFIED 01/25/2019 NOLAN ARAUJO MD Ot F43. 10 POST-TRAUMATIC STRESS DISORDER, UNSPECIF 01/25/2019 NOLAN ARAUJO MD Ot J44. 9 CHRONIC OBSTRUCTIVE PULMONARY DISEASE, U 01/25/2019 NOLAN ARAUJO MD Ot K59. 00 CONSTIPATION, UNSPECIFIED 01/25/2019 NOLAN ARAUJO MD Ot R10. 32 LEFT LOWER QUADRANT PAIN 01/25/2019 NOLAN ARAUJO MD Ot Z86. 73 PRSNL HX OF TIA (TIA), AND CEREB INFRC W 01/25/2019 NOLAN ARAUJO MD Ot Z90. 49 ACQUIRED ABSENCE OF OTHER SPECIFIED PART 01/25/2019 NOLAN ARAUJO MD Ot Z90.710 ACQUIRED ABSENCE OF BOTH CERVIX AND UTER 01/25/2019 NOLAN ARAUJO MD Ot Z90.722 ACQUIRED ABSENCE OF OVARIES, BILATERAL 01/30/2019 TONIO DO, LOIS Shala Ot F31.9 BIPOLAR DISORDER, UNSPECIFIED 01/30/2019 TOINO DO, LOIS D Ot F41.9 ANXIETY DISORDER, UNSPECIFIED 01/30/2019 TONIO DO, LOIS D Ot F43.10 POST-TRAUMATIC STRESS DISORDER, UNSPECIF 01/30/2019 TONIO DO, LOIS D Ot J44.9 CHRONIC OBSTRUCTIVE PULMONARY DISEASE, U 01/30/2019 TONIO DO, LOIS D Ot K56.41 FECAL IMPACTION 01/30/2019 TONIO DO, LOIS D Ot R10.30 LOWER ABDOMINAL PAIN, UNSPECIFIED 01/30/2019 TONIO DO, LOIS D Ot Z86.73 PRSNL HX OF TIA (TIA), AND CEREB INFRC W 01/30/2019 TONIO DO, LOIS D Ot Z90.49 ACQUIRED ABSENCE OF OTHER SPECIFIED PART 01/30/2019 TONIO DO, LOIS D Ot Z90.710 ACQUIRED ABSENCE OF BOTH CERVIX AND UTER 02/01/2019 TONIO DO, LOIS D Ot F31.9 BIPOLAR DISORDER, UNSPECIFIED 02/01/2019 TONIO DO, LOIS D Ot F41.9 ANXIETY DISORDER, UNSPECIFIED 02/01/2019 TONIO DO, LOIS D Ot F43.10 POST-TRAUMATIC STRESS DISORDER, UNSPECIF 02/01/2019 TONIO DO, LOIS D Ot J44.9 CHRONIC OBSTRUCTIVE PULMONARY DISEASE, U 02/01/2019 TONIO DO, LOIS D Ot K56.41 FECAL IMPACTION 02/01/2019 TONIO DO, LOIS D Ot R10.30 LOWER ABDOMINAL PAIN, UNSPECIFIED 02/01/2019 TONIO DO, LOIS D Ot Z86.73 PRSNL HX OF TIA (TIA), AND CEREB INFRC W 02/01/2019 TONIO DO, LOIS D Ot Z90.49 ACQUIRED ABSENCE OF OTHER SPECIFIED PART 02/01/2019 TONIO DO, LOIS D Ot Z90.710 ACQUIRED ABSENCE OF BOTH CERVIX AND UTER 06/14/2019 ALEJANDRINA VÁZQUEZ CLAY CARMAN Ot M25.552 PAIN IN LEFT HIP 06/14/2019 ALEJANDRINA VÁZQUEZ [employer] Ot M48.56XA COLLAPSED VERTEBRA, NEC, LUMBAR REGION, 06/14/2019 ALEJANDRINA VÁZQUEZ [employer] Ot M54.40 LUMBAGO WITH SCIATICA, UNSPECIFIED SIDE 06/18/2019 ALEJANDRINA VÁZQUEZ [employer]MAN Ot M25.552 PAIN IN LEFT HIP 06/18/2019 GURPREET, ALEJANDRINA Saunders [employer]MAN Ot M48.56XA COLLAPSED VERTEBRA, NEC, LUMBAR REGION, 06/18/2019 ALEJANDRINA VÁZQUEZ [employer] Ot M54.40 LUMBAGO WITH SCIATICA, UNSPECIFIED SIDE 06/21/2019 ALEJANDRINA VÁZQUEZ C[employer]MAN Ot M25.552 PAIN IN LEFT HIP 06/21/2019 ALEJANDRINA VÁZQUEZ C[employer]MAN Ot M48.56XA COLLAPSED VERTEBRA, NEC, LUMBAR REGION, 06/21/2019 ALEJANDRINA VÁZQUEZ [employer] Ot M54.40 LUMBAGO WITH SCIATICA, UNSPECIFIED SIDE 06/21/2019 YINA WONG MD Ot F17.210 NICOTINE DEPENDENCE, CIGARETTES, UNCOMPL 06/21/2019 YINA WONG MD Ot F31.9 BIPOLAR DISORDER, UNSPECIFIED 06/21/2019 YINA WONG MD, Ot F41.9 ANXIETY DISORDER, UNSPECIFIED 06/21/2019 YINA WONG MD Ot F43.10 POST-TRAUMATIC STRESS DISORDER, UNSPECIF 06/21/2019 YINA WONG MD Ot J44.9 CHRONIC OBSTRUCTIVE PULMONARY DISEASE, U 06/21/2019 YINA WONG MD Ot M25.552 PAIN IN LEFT HIP 06/21/2019 YINA WONG MD Ot M54.32 SCIATICA, LEFT SIDE 06/21/2019 YINA WONG MD Ot Z86.73 PRSNL HX OF TIA (TIA), AND CEREB INFRC W 06/21/2019 YINA WONG MD Ot Z87.81 PERSONAL HISTORY OF (HEALED) TRAUMATIC F 06/21/2019 YINA WONG MD Ot Z90.49 ACQUIRED ABSENCE OF OTHER SPECIFIED PART 06/21/2019 YINA WONG MD Ot Z90.710 ACQUIRED ABSENCE OF BOTH CERVIX AND UTER 06/26/2019 YINA WONG MD Ot F17.210 NICOTINE DEPENDENCE, CIGARETTES, UNCOMPL 06/26/2019 YINA WONG MD Ot F31.9 BIPOLAR DISORDER, UNSPECIFIED 06/26/2019 YIAN WONG MD, Ot F41.9 ANXIETY DISORDER, UNSPECIFIED 06/26/2019 YINA WONG MD Ot F43.10 POST-TRAUMATIC STRESS DISORDER, UNSPECIF 06/26/2019 YINA WONG MD, Ot J44.9 CHRONIC OBSTRUCTIVE PULMONARY DISEASE, U 06/26/2019 YINA WONG MD, Ot M25.552 PAIN IN LEFT HIP 06/26/2019 YINA WONG MD, Ot M54.32 SCIATICA, LEFT SIDE 06/26/2019 YINA WONG MD, Ot Z86.73 PRSNL HX OF TIA (TIA), AND CEREB INFRC W 06/26/2019 YINA WONG MD, Ot Z87.81 PERSONAL HISTORY OF (HEALED) TRAUMATIC F 06/26/2019 YINA WONG MD, Ot Z90.49 ACQUIRED ABSENCE OF OTHER SPECIFIED PART 06/26/2019 YINA WONG MD, Ot Z90.710 ACQUIRED ABSENCE OF BOTH CERVIX AND UTER 07/08/2019 ALEJANDRINA VÁZQUEZ APRN Ot M25.552 PAIN IN LEFT HIP 07/08/2019 ALEJANDRINA VÁZQUEZ APRN Ot M48.56XA COLLAPSED VERTEBRA, NEC, LUMBAR REGION, 07/08/2019 ALEJANDRINA VÁZQUEZ APRN Ot M54.40 LUMBAGO WITH SCIATICA, UNSPECIFIED SIDE 07/11/2019 SHREYA RAGLAND MD Ot F17.210 NICOTINE DEPENDENCE, CIGARETTES, UNCOMPL 07/11/2019 SHREYA RAGLAND MD Ot F31. 9 BIPOLAR DISORDER, UNSPECIFIED 07/11/2019 SHREYA RAGLAND MD Ot F41. 9 ANXIETY DISORDER, UNSPECIFIED 07/11/2019 SHREYA RAGLAND MD Ot F43. 10 POST-TRAUMATIC STRESS DISORDER, UNSPECIF 07/11/2019 SHREYA RAGLAND MD Ot J40 BRONCHITIS, NOT SPECIFIED ACUTE OR CH 07/11/2019 SHREYA RAGLAND MD Ot J44. 0 CHR OBSTRUCTIVE PULMON DISEASE WITH (ACU 07/11/2019 SHREYA RAGLAND MD, Ot R05 COUGH 07/11/2019 SHREYA RAGLAND MD, Ot Z86. 73 PRSNL HX OF TIA (TIA), AND CEREB INFRC W 07/11/2019 SHREYA RAGLAND MD, Ot Z90. 49 ACQUIRED ABSENCE OF OTHER SPECIFIED PART 07/11/2019 SHREYA RAGLAND MD, Ot Z90.710 ACQUIRED ABSENCE OF BOTH CERVIX AND UTER 07/22/2019 NATHAN SIERRA Ot M17.12 UNILATERAL PRIMARY OSTEOARTHRITIS, LEFT Procedures There is no data. Results Test Result Range LIPID PANEL - 09/10/17 05:37 CHOLESTEROL 192 mg/dL <=200 HDL CHOLESTEROL 50 mg/dL 40-90 LDL CHOLESTEROL 126 mg/dL NON-HDL CHOLESTEROL 142 mg/dL 0-129 TRIGLYCERIDE 82 mg/dL 0-149 TSH - 04/12/18 13:31 TSH 0.95 mIU/L 0.40-4.50 Complete blood count (CBC) with automate d white blood cell (WBC) differential - 01/23/19 11:53 Blood leukocytes automated count (number/volume) 12.4 10*3/uL 4.3-11.0 Blood erythrocytes automated count (number/volume) 5.32 10*6/uL 4.35-5.85 Venous blood hemoglobin measurement (mass/volume) 16.0 g/dL 11.5-16.0 Blood hematocrit (volume fraction) 47 % 35-52 Automated erythrocyte mean corpuscular volume 87 [ foz_us] 80-99 Automated erythrocyte mean corpuscular h emoglobin (mass per erythrocyte) 30 pg 25-34 Automated erythrocyte mean corpuscular h emoglobin concentration measurement (mass/volume) 34 g/dL 32-36 Automated erythrocyte distribution width ratio 12. 3 % 10.0- 14.5 Automated blood platelet count [...] 10*3 1.0-4.0 Blood monocytes automated count (number/volume) 1. 4 10*3 0.0-1.0 Automated eosinophil count 0.1 10*3/uL 0 .0-0.3 Automated blood basophil count (count/volume) 0.1 10*3/uL 0.0-0.1 Comprehensive metabolic panel - 01/23/19 11:53 Serum or plasma sodium measurement (moles/volume) 138 mmol/L 135-145 Serum or plasma potassium measurement (moles/volume) 4.2 mmol/L 3.6-5.0 Serum or plasma chloride measurement (moles/volume) 99 mmol/L 98-107 Carbon dioxide 25 mmol/L 21-32 Serum or plasma anion gap determination (moles/volume) 14 mmol/L 5-14 Serum or plasma urea nitrogen measurement (mass/volume ) 22 mg/dL 7-18 Serum or plasma creatinine measurement (mass/volume) 0.79 mg/dL 0.60-1.30 Serum or plasma urea nitrogen/creatinine mass ratio 28 NRG Serum or plasma creatinine measurement w ith calculation of estimated glomerular filtration rate > NRG Serum or plasma glucose measurement (mass/volume) 117 mg/dL 70-105 Serum or plasma calcium measurement (mass/volume) 10.1 mg/dL 8.5-10.1 Serum or plasma total bilirubin measurement (mass/volu me) 0.5 mg/dL 0.1-1.0 Serum or plasma alkaline phosphatase kevin surement (enzymatic activity/volume) 77 U/L 40-136 Serum or plasma aspartate aminotransfera se measurement (enzymatic activity/volume) 12 U/L 5-34 Serum or plasma alanine aminotransferase measurement (enzymatic activity/volume) < U/L 0-55 Serum or plasma protein measurement (mass/volume) 7.9 g/dL 6.4-8.2 Serum or plasma albumin measurement (mass/volume) 4.5 g/dL 3.2-4.5 CALCIUM CORRECTED 9.7 mg/dL 8.5-10.1 Lipase - 01/23/19 11:53 Lipase 31 U/L 8-78 Complete urinalysis with reflex to cultu re - 01/23/19 11:59 Urine color determination YELLOW NRG Urine clarity determination SLT CLOUDY NRG Urine pH measurement by test strip 5.5 5-9 Specific gravity of urine by test strip >= 1.016-1.022 Urine protein assay by test strip, semi-quantitative 1+ NEGATIVE Urine glucose detection by automated test strip NE GATIVE NEGATIVE Erythrocytes detection in urine sediment by light micr oscopy 3+ NEGATIVE Urine ketones detection by automated test strip 1+ NEGATIVE Urine nitrite detection by test strip NEGATIVE NEGATIVE Urine total bilirubin detection by test strip 2+ NEGATIVE Urine urobilinogen measurement by automated test strip (mass/volume) 1.0 mg/dL NORMAL Urine leukocyte esterase detection by dipstick NEG ATIVE NEGATIVE Automated urine sediment erythrocyte cou nt by microscopy (number/high power field) RARE NRG Automated urine sediment leukocyte count by microscopy (number/high power field) [HPF] NRG Bacteria detection in urine sediment by light microsco py LARGE NRG Squamous epithelial cells detection in u rine sediment by light microscopy 10-25 NRG Crystals detection in urine sediment by light microsco py NONE NRG Casts detection in urine sediment by light microscopy NONE NRG Mucus detection in urine sediment by light microscopy SMALL NRG Complete urinalysis with reflex to culture NO NRG Blood lactic acid measurement (moles/vol ume) - 01/23/19 12:02 Blood lactic acid measurement (moles/volume) 1.12 mmol/L 0.50-2.00 Complete urinalysis with reflex to cultu re - 01/30/19 22:22 Urine color determination YELLOW NRG Urine clarity determination CLEAR NR G Urine pH measurement by test strip 6.5 5-9 Specific gravity of urine by test strip 1.025 1.016-1.022 Urine protein assay by test strip, semi-quantitative TRACE NEGATIVE Urine glucose detection by automated test strip NE GATIVE NEGATIVE Erythrocytes detection in urine sediment by light micr oscopy 1+ NEGATIVE Urine ketones detection by automated test strip TR GEMMA NEGATIVE Urine nitrite detection by test strip NEGATIVE NEGATIVE Urine total bilirubin detection by test strip 2+ NEGATIVE Urine urobilinogen measurement by automated test strip (mass/volume) 4.0 mg/dL NORMAL Urine leukocyte esterase detection by dipstick NEG ATIVE NEGATIVE Automated urine sediment erythrocyte cou nt by microscopy (number/high power field) [HPF] NRG Automated urine sediment leukocyte count by microscopy (number/high power field) NONE NRG Bacteria detection in urine sediment by light microsco py NONE NRG Squamous epithelial cells detection in u rine sediment by light microscopy 0-2 NRG Crystals detection in urine sediment by light microsco py NONE NRG Casts detection in urine sediment by light microscopy NONE NRG Mucus detection in urine sediment by light microscopy TRACE NRG Complete urinalysis with reflex to culture NO NRG A1C - 06/06/19 08:29 HEMOGLOBIN A1c 5.3 % of total Hgb <5.7 Encounters ACCT No. Visit Date/Time Discharge Status Pt. Type Provider Facility Loc./Unit Complaint [id number] 07/04/2019 07:40:00 07/04/2019 23:59: 59 CLS Outpatient ALEJANDRINA VÁZQUEZ [facility] [id number] 06/06/2019 08:15:00 Document Registration [id number] 04/12/2018 13:00:00 Document Registration [id number] 07/16/2019 14:44:00 23:59:59 CLS Outpatient NATHAN SIERRA [employer] [employer] [facility] FS M25.562 [id number] 07/07/2019 23:52:00 00:28:00 DIS Outpatient ELLYN CUETO, SHREYA Olson [facility] FS COUGH [id number] 06/21/2019 19:28:00 20:49:00 DIS Emergency YINA WONG MD [facility] FS LT HIP PAIN [id number] 06/12/2019 08:29:00 23:59:59 CLS Outpatient ALEJANDRINA VÁZQUEZ C[employer] [facility] FS M54.5 [id number] 01/30/2019 21:29:00 23:42:00 DIS Emergency LOIS ELIAZLDE DO [facility] FS LOW ABD CRAMPING [id number] 01/23/2019 11:39:00 13:16:00 DIS Emergency NOLAN ARAUJO MD [facility] FS ABD CRAMPS [id number] 12/20/2018 21:57:00 23:17:00 DIS Emergency ABIGAIL CUETO, CLINT [facility] ER FS LT HIP PAIN S JOSE ANTONIO [id number] 06/21/2019 19:29:00 Document Registration [id number] 09/08/2017 20:38:00 8 11:40:00 DIS Inpatient CHINEDU LIU [facility] [id number] 09/08/2017 22:02:19 Document Registration
== END 2019-07-08 00:28 | disposition home or self-care (01) ==
LOC: EDUNIT# 23:49 → ER FS 23:52
DX: J40 Bronchitis, not specified as acute or chronic (principal); J44.0 Chronic obstructive pulmonary disease with (acute) lower respiratory infection; F41.9 Anxiety disorder, unspecified; F43.10 Post-traumatic stress disorder, unspecified; F31.9 Bipolar disorder, unspecified; F17.210 Nicotine dependence, cigarettes, uncomplicated; Z86.73 Personal history of transient ischemic attack (TIA), and cerebral infarction without residual deficits; Z90.49 Acquired absence of other specified parts of digestive tract; Z90.710 Acquired absence of both cervix and uterus
CPT/HCPCS: 71046

== ENCOUNTER → 2019-07-16 | Outpatient (CLI) | payer SELFPAY ==
[~2019-07-16] MED LIST changes: +AZIT250T12 PO
--- NOTE | 2019-07-16 15:11 | Diagnostic Imaging Report ---
INDICATION: Left knee pain. TIME OF EXAM: 2:59 p.m. Three views of the left knee were obtained. FINDINGS: Alignment is normal. There is mild medial compartmental degenerative change with joint space narrowing and marginal spurring. Lateral compartment and patellofemoral compartment are unremarkable. There is no effusion. There is no fracture. IMPRESSION: Mild medial compartmental degenerative change. No other abnormality is detected. Dictated by: Dictated on workstation # [id number]
== END ==
LOC: RAD FS 14:44
PROVIDERS: ATTEND Nurse Practitioner
DX: M17.12 Unilateral primary osteoarthritis, left knee (principal)
CPT/HCPCS: 73562

== ENCOUNTER 2019-08-22 07:36 | Emergency (ER) | payer SELFPAY ==
[~2019-08-22] VITALS: Ht 160 cm; Wt 80.8 kg
[2019-08-22] MEDS ORDERED: KETOROLAC 60 MG/2 ML VIAL IM ONE (08:00)
--- NOTE | 2019-08-22 08:05 | ED Fall/Injury ---
General Chief Complaint: Lower Extremity Stated Complaint: FALL; RT HIP INJ History of Present Illness Date Seen by Provider: Aug 22, 2019 Time Seen by Provider: 07:59 Initial Comments 59-year-old female was already walking with a cane and doing physical therapy for problems with her hips and knees no prior fractures she also relates a history of an L2 compression fracture and "bulging disks" has never had back surgery or injections she fell onto both knees and complains of pain mainly in her right hip right lower back and radiating to the right foot she ambulated into the exam room on her own using a cane Allergies and Home Medications Allergies Coded Allergies: No Known Drug Allergies (Unverified , 01/30/19) Home Medications Aspirin 81 Mg Tablet.dr, 81 MG PO DAILY, (Reported) Polyethylene Glycol 3350 17 Gm Powd.pack, 17 GM PO BID PRN Prescribed by: NOLAN ARAUJO on 01/23/19 1240 Patient Home Medication List Home Medication List Reviewed: Yes Review of Systems Review of Systems Constitutional: no symptoms reported Eyes: No Symptoms Reported Respiratory: no symptoms reported Cardiovascular: no symptoms reported Gastrointestinal: no symptoms reported Genitourinary: no symptoms reported Musculoskeletal: back pain, other (right hip and leg pain) Skin: no symptoms reported Psychiatric/Neurological: No Symptoms Reported Past Hqreume-Seanfr-Ihrzcx Hx Patient Social History Type Used: Cigarettes Recent Foreign Travel: No Recent Hopitalizations: No Seasonal Allergies Seasonal Allergies: No Past Medical History Surgeries: Yes Appendectomy, Hysterectomy Respiratory: Yes COPD Cardiac: No Neurological: Yes Stroke, TIA, Vertigo Genitourinary: No Gastrointestinal: No Musculoskeletal: No Endocrine: No HEENT: No Cancer: No Psychosocial: Yes Anxiety, PTSD, Bipolar, Depression Integumentary: No Blood Disorders: No Family Medical History No Pertinent Family Hx Physical Exam Vital Signs Vital Signs - First Documented 08/22/19 07:48 Temp 36.8 Pulse 76 B/P (MAP) 121/80 (94) Pulse Ox 20 O2 Delivery Room Air Capillary Refill : Height, Weight, BMI Height: 5'3.00" Weight: 155lbs. oz. 70.811038nc; 31.00 BMI Method:Stated General Appearance: WD/WN, mild distress HEENT: PERRL/EOMI Neck: non-tender, supple Cardiovascular: regular rate, rhythm Respiratory: lungs clear Gastrointestinal: non tender, soft Extremities: other (has only light red lul below left knee both knees does not suggest any acute injury left hip exam normal she has strong plantar and dorsiflexion bilaterally she will not allow any straight leg raising on the right has symmetric strength and normal muscle tone in lower extremities) Progress/Results/Core Measures Results/Orders My Orders Orders - SHREYA RAGLAND MD Ketorolac Injection (Toradol Injection) (08/22/19 08:00) Ct Lumbar Spine Wo (08/22/19 07:57) Pelvis With Right Hip 2-3 View (08/22/19 07:57) Medications Given in ED Current Medications Medications Dose Ordered Sig/Bronson Route Start Time Stop Time Status Last Admin Dose Admin Ketorolac Tromethamine 60 mg ONCE ONCE IM 08/22/19 08:00 08/22/19 08:01 DC 08/22/19 08:02 60 MG Vital Signs/I&O 08/22/19 07:48 Temp 36.8 Pulse 76 B/P (MAP) 121/80 (94) Pulse Ox 20 O2 Delivery Room Air Diagnostic Imaging Comments pelvis and right hip - no fracture moderate osteoarthritis of right hip CT of lumbar spine stable chronic left lateral wedging of L2 No evidence of any acute fracture or dislocation Mild diffuse disc bulging with mild to moderate bilateral neural foramen narrowing at L3 - 4 above shared with pt she is better after toradol IM Departure Impression Primary Impression: Low back strain Qualified Codes: S39.012A - Strain of muscle, fascia and tendon of lower back, initial encounter Additional Impression: Sciatica Qualified Codes: M54.31 - Sciatica, right side Disposition: 01 HOME, SELF-CARE Condition: Improved Departure-Patient Inst. Decision time for Depature: 08:58 Referrals: [facility] [place] (PCP) Primary Care Physician ALEJANDRINA VÁZQUEZ APRN (Family) Primary Care Physician Patient Instructions: Low Back Pain (DC), Sciatica (DC) Scripts Prednisone (Prednisone) 20 Mg Tab 40 MG PO DAILY for 5 Days, #10 TAB Prov: SHREYA RAGLAND MD 08/22/19 Hydrocodone Bit/Acetaminophen (Hydrocodone/Acetaminophen 5/325mg Tablet) 1 Tab Tab 1 EACH PO Q4-6HR PRN for PAIN-MODERATE MDD 10 for 3 Days, #16 TAB Prov: SHREYA RAGLAND MD 08/22/19 SHREYA RAGLAND MD Aug 22, 2019 08:04
[2019-08-22] MEDS ORDERED: PROAIR (08:09)
[2019-08-22] MEDS ORDERED: GABA-488 (08:09)
[2019-08-22] MEDS ORDERED: LAMO100T5 (08:09)
[2019-08-22] MEDS ORDERED: MELO15TA39 (08:09)
[2019-08-22] MEDS ORDERED: ASPI-586 PO (08:10)
[2019-08-22] MEDS ORDERED: Chantix (08:11)
[2019-08-22] MEDS ORDERED: Calcium + Vitamin D (08:11)
--- NOTE | 2019-08-22 08:31 | Diagnostic Imaging Report ---
EXAMINATION: Right hip unilateral 2 or 3 views (w/pelvis when done) HISTORY: Fall COMPARISON: None available. FINDINGS: There is moderate right and mild left hip osteoarthritis. No fracture seen. Alignment is normal. No pelvic fracture is seen. IMPRESSION: 1. Moderate right and mild left hip osteoarthritis without fracture. Dictated by: Dictated on workstation # [id number]
--- NOTE | 2019-08-22 08:43 | Diagnostic Imaging Report ---
CLINICAL INDICATION: Patient is status post fall. Patient has low back pain. Patient has history of degenerative disc disease. EXAM: Axial CT scan of the lumbar spine performed without IV contrast. Sagittal and coronal reformatted images were created. Auto Exposure Controls were utilized during the CT exam to meet ALARA standards for radiation dose reduction. All CT scans use one or more of the following dose optimizing techniques: automated exposure control, MA and/or KvP adjustment based on patient size and exam type or iterative reconstruction. COMPARISON: X-ray of the lumbar spine dated 06/12/2019.. FINDINGS: There is no interval acute lumbar spine fracture dislocation. A stable chronic left lateral wedging of the L2 vertebra with compression fracture deformity. There are mildly hypertrophic spurs involving the lumbar spine and lower lumbar spine facet arthropathy. There is a mild diffuse disc bulge involving the L2-L3 and L3-L4 levels. There is [id number] bilateral L3-L4 neural foramen narrowing and mild bilateral L4-L5 neural foramen narrowing. There is no significant bony central canal stenosis. There is minimal diffuse disc bulge at the L4-L5 level and facet arthropathy. There is no significant paraspinal soft tissue abnormality. IMPRESSION: 1. There is no evidence of acute lumbar spine fracture. 2. Stable left lateral wedge chronic compression fracture deformity of the L3 vertebra. 3. Lumbar spine degenerative disease. Dictated by: Dictated on workstation # [id number]
[2019-08-22] MEDS ORDERED: ACHD5005 PO (09:01)
[2019-08-22] MEDS ORDERED: PRD20T PO (09:01)
[2019-08-22 09:04] VITALS: BP 108/60
--- NOTE | 2019-08-22 09:04 | NUR ---
Pt discharged to home after review of home instructions read and verbalized as understood. 2 scripts provided to patient from Dr Rich.
== END 2019-08-22 09:04 | disposition home or self-care (01) ==
LOC: EDUNIT# 07:36 → ER FS 07:38
DX: S39.012A Strain of muscle, fascia and tendon of lower back, initial encounter (principal); M54.31 Sciatica, right side; J44.9 Chronic obstructive pulmonary disease, unspecified; F41.9 Anxiety disorder, unspecified; F43.10 Post-traumatic stress disorder, unspecified; F31.9 Bipolar disorder, unspecified; Z86.73 Personal history of transient ischemic attack (TIA), and cerebral infarction without residual deficits; Z87.81 Personal history of (healed) traumatic fracture; Z79.82 Long term (current) use of aspirin; Z90.49 Acquired absence of other specified parts of digestive tract; Z90.710 Acquired absence of both cervix and uterus; W19.XXXA Unspecified fall, initial encounter
CPT/HCPCS: 72131; 73502

== ENCOUNTER 2019-10-27 11:19 | Emergency (ER) | payer SELFPAY ==
[~2019-10-27] VITALS: Ht 161 cm; Wt 76.0 kg
[~2019-10-27 11:19] MED LIST changes: +ACHD5005 PO; +ASPI-586 PO; +Calcium + Vitamin D; +Chantix; +GABA-488; +LAMO100T5; +MELO15TA39; +PROAIR
--- OUTSIDE RECORDS SUMMARY | 2019-10-27 11:26 | XMS REPORT | Continuity of Care Document ---
Author Organization Unknown Address Unknown Phone Unavailable Allergies Active Description Code Type Severity Reaction Onset Reported/Identified Relationship to Patient Clinical Status Yes NO NAME AVAILABLE [id number] DRUG N/A N/A Yes No Known Drug Allergies [id number] Drug Allergy Unknown N/A 01/30/2019 Medications Medication [...] Diagnosis Diagnosed By 09/12/2017 CHINEDU LIU V [id number] Suicidal 09/12/2017 CHINEDU LIU P F33.3 Major [...] Shala Ot F31.9 BIPOLAR DISORDER, UNSPECIFIED 01/30/2019 TONIO DO, LOIS D Ot F41.9 ANXIETY [...] BOTH CERVIX AND UTER 06/14/2019 ALEJANDRINA VÁZQUEZ REPRODUCER Ot M25.552 PAIN IN LEFT HIP 06/14/2019 ALEJANDRINA VÁZQUEZ REPRODUCER Ot M48.56XA COLLAPSED VERTEBRA, NEC, LUMBAR REGION, 06/14/2019 ALEJANDRINA VÁZQUEZ REPRODUCER Ot M54.40 LUMBAGO WITH SCIATICA, UNSPECIFIED SIDE 06/18/2019 ALEJANDRINA VÁZQUEZ REPRODUCER Ot M25.552 PAIN IN LEFT HIP 06/18/2019 GURPREET, ALEJANDRINA Saunders REPRODUCER Ot M48.56XA COLLAPSED VERTEBRA, NEC, LUMBAR REGION, 06/18/2019 ALEJANDRINA VÁZQUEZ REPRODUCER Ot M54.40 LUMBAGO WITH SCIATICA, UNSPECIFIED SIDE 06/21/2019 ALEJANDRINA VÁZQUEZ REPRODUCER Ot M25.552 PAIN IN LEFT HIP 06/21/2019 ALEJANDRINA VÁZQUEZ REPRODUCER Ot M48.56XA COLLAPSED VERTEBRA, NEC, LUMBAR REGION, 06/21/2019 ALEJANDRINA VÁZQUEZ REPRODUCER Ot M54.40 LUMBAGO WITH SCIATICA, UNSPECIFIED SIDE [...] MD Ot F31.9 BIPOLAR DISORDER, UNSPECIFIED 06/26/2019 YINA WONG MD, Ot F41.9 ANXIETY DISORDER, [...] AND CEREB INFRC W 06/26/2019 YINA WONG MD Ot Z87.81 PERSONAL HISTORY OF (HEALED) TRAUMATIC F 06/26/2019 YINA WONG MD, Ot Z90.49 ACQUIRED ABSENCE OF OTHER SPECIFIED PART 06/26/2019 YINA WONG MD, Ot Z90.710 ACQUIRED ABSENCE OF BOTH CERVIX AND UTER 07/08/2019 SHREYA RAGLAND MD Ot F17.210 NICOTINE DEPENDENCE, CIGARETTES, UNCOMPL 07/08/2019 SHREYA RAGLAND MD Ot F31. 9 BIPOLAR DISORDER, UNSPECIFIED 07/08/2019 SHREYA RAGLAND MD Ot F41. 9 ANXIETY DISORDER, UNSPECIFIED 07/08/2019 SHREYA RAGLAND MD Ot F43. 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 0 CHR OBSTRUCTIVE PULMON DISEASE WITH (ACU 07/08/2019 SHREYA RAGLAND MD Ot R05 COUGH 07/08/2019 SHREYA RAGLAND MD Ot Z86. 73 PRSNL HX OF TIA (TIA), AND CEREB INFRC W 07/08/2019 SHREYA RAGLAND MD Ot Z90. 49 ACQUIRED ABSENCE OF OTHER SPECIFIED PART 07/08/2019 SHREYA RAGLAND MD, Ot Z90.710 ACQUIRED ABSENCE OF BOTH CERVIX AND UTER 07/08/2019 GURPREETALEJANDRINA RODRIGUEZ LEI Ot M25.552 PAIN IN LEFT HIP 07/08/2019 ALEJANDRINA VÁZQUEZ LEI Ot M48.56XA COLLAPSED VERTEBRA, NEC, LUMBAR REGION, 07/08/2019 ALEJANDRINA VÁZQUEZ LEI Ot M54.40 LUMBAGO WITH SCIATICA, UNSPECIFIED SIDE 07/11/2019 SHREYA RAGLAND MD Ot F17.210 NICOTINE DEPENDENCE, CIGARETTES, UNCOMPL 07/11/2019 SHREYA RAGLAND MD Ot F31. 9 BIPOLAR DISORDER, UNSPECIFIED 07/11/2019 SHREYA RAGLAND MD, Ot F41. 9 ANXIETY DISORDER, UNSPECIFIED 07/11/2019 SHREYA RAGLAND MD Ot F43. 10 POST-TRAUMATIC STRESS DISORDER, UNSPECIF 07/11/2019 SHREYA RAGLAND MD Ot J40 BRONCHITIS, NOT SPECIFIED ACUTE OR CH 07/11/2019 SHREYA RAGLAND MD Ot J44. 0 CHR OBSTRUCTIVE PULMON DISEASE WITH (ACU 07/11/2019 SHREYA RAGLAND MD Ot R05 COUGH 07/11/2019 SHREYA RAGLAND MD Ot Z86. 73 PRSNL HX OF TIA (TIA), AND CEREB INFRC W 07/11/2019 SHREYA RAGLAND MD Ot Z90. 49 ACQUIRED ABSENCE OF OTHER SPECIFIED PART 07/11/2019 SHREYA RAGLAND MD Ot Z90.710 ACQUIRED ABSENCE OF BOTH CERVIX AND UTER 07/22/2019 NATHAN SIERRA Ot M17.12 UNILATERAL PRIMARY OSTEOARTHRITIS, LEFT 08/22/2019 SHREYA RAGLAND MD Ot M54. 31 SCIATICA, RIGHT SIDE 08/22/2019 SHREYA RAGLAND MD Ot M54. 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 73 PRSNL HX OF TIA (TIA), AND CEREB INFRC W 08/22/2019 SHREYA RAGLAND MD Ot Z87. 81 PERSONAL HISTORY OF (HEALED) TRAUMATIC F 08/22/2019 SHREYA RAGLAND MD Ot Z90. 49 ACQUIRED ABSENCE OF OTHER SPECIFIED PART 08/22/2019 SHREYA RAGLAND MD Ot Z90.710 ACQUIRED ABSENCE OF BOTH CERVIX AND UTER 08/22/2019 ALEJANDRINA VÁZQUEZ APRN Ot M25.552 PAIN IN LEFT HIP 08/22/2019 ALEJANDRINA VÁZQUEZ REPRODUCER Ot M48.56XA COLLAPSED VERTEBRA, NEC, LUMBAR REGION, 08/22/2019 ALEJANDRINA VÁZQUEZ APRN Ot M54.40 LUMBAGO WITH SCIATICA, UNSPECIFIED SIDE 08/22/2019 NATHAN SIERRA Ot M17.12 UNILATERAL PRIMARY OSTEOARTHRITIS, LEFT 08/27/2019 SHREYA RAGLAND MD Ot M54. 31 SCIATICA, RIGHT SIDE 08/27/2019 SHREYA RAGLAND MD Ot M54. 5 LOW BACK PAIN 08/27/2019 SHREYA RAGLAND MD Ot S39.012A STRAIN OF MUSCLE, FASCIA AND TENDON OF L 08/27/2019 SHREYA RAGLAND MD Ot W19.XXXA UNSPECIFIED FALL, INITIAL ENCOUNTER 08/27/2019 SHREYA RAGLAND MD Ot Z79. 82 USP (CURRENT) USE OF ASPIRIN 08/27/2019 SHREYA RAGLAND MD Ot Z86. 73 PRSNL HX OF TIA (TIA), AND CEREB INFRC W 08/27/2019 SHREYA RAGLAND MD Ot Z87. 81 PERSONAL HISTORY OF (HEALED) TRAUMATIC F 08/27/2019 SHREYA RAGLAND MD Ot Z90. 49 ACQUIRED ABSENCE OF OTHER SPECIFIED PART 08/27/2019 SHREYA RAGLAND MD Ot Z90.710 ACQUIRED ABSENCE OF BOTH CERVIX AND UTER 08/27/2019 SHREYA RAGLAND MD Ot M54. 31 SCIATICA, RIGHT SIDE 08/27/2019 SHREYA RAGLAND MD Ot M54. 5 LOW BACK PAIN 08/27/2019 SHREYA RAGLAND MD Ot S39.012A STRAIN OF MUSCLE, FASCIA AND TENDON OF L 08/27/2019 SHREYA RAGLAND MD Ot W19.XXXA UNSPECIFIED FALL, INITIAL ENCOUNTER 08/27/2019 SHREYA RAGLAND MD Ot Z79. 82 USP (CURRENT) USE OF ASPIRIN 08/27/2019 SHREYA RAGLAND MD, Ot Z86. 73 PRSNL HX OF TIA (TIA), AND CEREB INFRC W 08/27/2019 SHREYA RAGLAND MD, Ot Z87. 81 PERSONAL HISTORY OF (HEALED) TRAUMATIC F 08/27/2019 SHREYA RAGLAND MD, Ot Z90. 49 ACQUIRED ABSENCE OF OTHER SPECIFIED PART 08/27/2019 SHREYA RAGLAND MD, Ot Z90.710 ACQUIRED ABSENCE OF BOTH CERVIX AND UTER 09/12/2019 ALEJANDRINA VÁZQUEZ APRN Ot M25.552 PAIN IN LEFT HIP 09/12/2019 ALEJANDRINA VÁZQUEZ APRN Ot M48.56XA COLLAPSED VERTEBRA, NEC, LUMBAR REGION, 09/12/2019 ALEJANDRINA VÁZQUEZ APRN Ot M54.40 LUMBAGO WITH SCIATICA, UNSPECIFIED SIDE 09/12/2019 NATHAN SIERRA Ot M17.12 UNILATERAL PRIMARY OSTEOARTHRITIS, [...] A1c 5.3 % of total Hgb <5.7 VITAMIN D, 25-H - 08/21/19 10:22 VITAMIN D,25-OH,TOTAL,IA 30 ng/mL 30-10 0 VITAMIN B12/FOLATE, SERUM PANEL - 10:23 VITAMIN B12 502 pg/mL 200-1100 FOLATE, SERUM 14.7 ng/mL NRG Encounters ACCT No. Visit Date/Time Discharge Status Pt. Type Provider Facility Loc./Unit Complaint [id number] 07/04/2019 07:40:00 07/04/2019 23:59: 59 CLS Outpatient ALEJANDRINA VÁZQUEZ [facility] [id number] 08/21/2019 08:20:00 Document Registration [id number] 06/06/2019 08:15:00 Document Registration [id number] 04/12/2018 13:00:00 Document Registration [id number] 08/22/2019 07:38:00 23:59:59 CLS Emergency SHREYA RAGLAND MD [facility] ER FS FALL; RT HIP INJ [id number] 07/16/2019 14:44:00 23:59:59 CLS Outpatient NATHAN SIERRA [facility] RAD FS M25.562 [id number] 07/07/2019 23:52:00 00:28:00 DIS Emergency SHREYA RAGLAND MD [facility] ER FS COUGH [id number] 06/21/2019 19:28:00 20:49:00 DIS Emergency MARVIN CUETO, YINA Last [facility] ER FS LT HIP PAIN [id number] 06/12/2019 08:29:00 23:59:59 CLS Outpatient GURPREETTHONYALEJANRDINAJW Saunders APRN [facility] RAD FS M54.5 [id number] 01/30/2019 21:29:00 23:42:00 DIS Emergency LOIS ELIZALDE DO [facility] ER FS LOW ABD CRAMPING [id number] 01/23/2019 11:39:00 13:16:00 DIS Emergency GAYLE CUETO, NOLAN Hall [facility] ER FS ABD CRAMPS [id number] 12/20/2018 21:57:00 23:17:00 DIS Emergency ABIGAIL CUETO, CLINT Malin [facility] ER FS LT HIP PAIN S JOSE ANTONIO [id number] 06/21/2019 19:29:00 Document Registration [id number] 09/08/2017 20:38:00 8 11:40:00 DIS Inpatient CHINEDU LIU [facility] [id number] 09/08/2017 22:02:19 Document Registration
[2019-10-27] MEDS ORDERED: fentaNYL INJECTION 100 MCG/2 ML AMP IVP ONE ×2 (11:30→12:45)
[2019-10-27] MEDS ORDERED: NS IV 1000 ML 1,000 ML IV SCH (11:30)
--- NOTE | 2019-10-27 11:35 | ED Abdominal Pain ---
General Chief Complaint: Abdominal/GI Problems Stated Complaint: ABD PAIN History of Present Illness Date Seen by Provider: Oct 27, 2019 Time Seen by Provider: 11:32 Initial Comments Patient presents with intermittent sharp abdominal pain for the past 2 days. Denies nausea vomiting, but has had diarrhea. Denies fever or chills, chest pain or shortness of air. Denies loss of appetite or weight loss. Yesterday the pain was relieved with bowel movement, today it is not. She called 911 for help. Denies previous occurrence of similar pain. History of an appendectomy. Allergies and Home Medications Allergies Coded Allergies: No Known Drug Allergies (Unverified , 01/30/19) Home Medications Aspirin 81 Mg Tablet.dr, 81 MG PO DAILY, (Reported) Hydrocodone Bit/Acetaminophen 1 Tab Tab, 1 EACH PO Q4-6HR PRN for PAIN-MODERATE Prescribed by: SHREYA RAGLAND on 08/22/19 0901 Hydrocodone/Acetaminophen 1 Each Tablet, 1 EACH PO Q4H Prescribed by: JAKI WHITTINGTON on 10/27/19 1403 Ondansetron 4 Mg Tab.rapdis, 4 MG PO TID Prescribed by: JAKI PATTERSONSTFREDERICK on 10/27/19 1403 Polyethylene Glycol 3350 17 Gm Powd.pack, 17 GM PO BID PRN Prescribed by: NOLAN ARAUJO on 01/23/19 1240 Prednisone 20 Mg Tab, 40 MG PO DAILY Prescribed by: SHREYA RAGLAND on 08/22/19 0901 Patient Home Medication List Home Medication List Reviewed: Yes Review of Systems Review of Systems Constitutional: see HPI; No chills, No fever, No malaise EENTM: No Symptoms Reported Respiratory: No Symptoms Reported; Denies Cough, Denies Shortness of Air Cardiovascular: Denies Chest Pain, Denies Edema, Denies Irregular Heart Rate, Denies Lightheadedness, Denies Palpitations, Denies Syncope Gastrointestinal: See HPI, Abdominal Pain; Denies Constipated; Diarrhea; Denies Nausea, Denies Poor Appetite, Denies Poor Fluid Intake, Denies Rectal Bleeding, Denies Vomiting Genitourinary: Denies Burning, Denies Frequency, Denies Flank Pain, Denies Hematuria Musculoskeletal: No back pain, No joint pain Skin: No change in color, No rash Past Dlwfmxc-Uancxs-Prifpf Hx Past Med/Social Hx: Reviewed Nursing Past Med/Soc Hx Patient Social History Type Used: Cigarettes Recent Hopitalizations: No Seasonal Allergies Seasonal Allergies: No Past Medical History Surgeries: Yes Appendectomy, Hysterectomy Respiratory: Yes (Tobaccoism) COPD Cardiac: No Neurological: Yes Stroke, TIA, Vertigo 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 oz. 70.239362of; 31.00 BMI Method:Stated General Appearance: WD/WN, no apparent distress HEENT: normal ENT inspection Respiratory: chest non-tender, lungs clear Cardiovascular: regular rate, rhythm, no edema Gastrointestinal: soft; No distended; guarding (all quadrants); No rebound; tenderness (diffuse); No mass, No hepatomegaly, No spleenomegaly Extremities: non-tender, no pedal edema Back: normal inspection, no CVA tenderness Progress/Results/Core Measures Results/Orders Lab Results Laboratory Tests Test 10/27/19 11:50 10/27/19 12:12 10/27/19 12:15 Range/Units White Blood Count 5.5 4.3-11.0 10^3/uL Red Blood Count 5.28 4.35-5.85 10^6/uL Hemoglobin 15.9 11.5-16.0 G/DL Hematocrit 46 35-52 % Mean Corpuscular Volume 88 80-99 FL Mean Corpuscular Hemoglobin 30 25-34 PG Mean Corpuscular Hemoglobin Concent 34 32-36 G/DL Red Cell Distribution Width 12.4 10.0-14.5 % Platelet Count 195 130-400 10^3/uL Mean Platelet Volume 11.4 H 7.4-10.4 FL Neutrophils (%) (Auto) 58 42-75 % Lymphocytes (%) (Auto) 31 12-44 % Monocytes (%) (Auto) 10 0-12 % Eosinophils (%) (Auto) 1 0-10 % Basophils (%) (Auto) 0 0-10 % Neutrophils # (Auto) 3.2 1.8-7.8 X 10^3 Lymphocytes # (Auto) 1.7 1.0-4.0 X 10^3 Monocytes # (Auto) 0.5 0.0-1.0 X 10^3 Eosinophils # (Auto) 0.1 0.0-0.3 10^3/uL Basophils # (Auto) 0.0 0.0-0.1 10^3/uL Sodium Level 141 135-145 MMOL/L Potassium Level 4.0 3.6-5.0 MMOL/L Chloride Level 107 98-107 MMOL/L Carbon Dioxide Level 24 21-32 MMOL/L Anion Gap 10 5-14 MMOL/L Blood Urea Nitrogen 15 7-18 MG/DL Creatinine 0.81 0.60-1.30 MG/DL Estimat Glomerular Filtration Rate > 60 BUN/Creatinine Ratio 19 Glucose Level 110 H 70-105 MG/DL Calcium Level 9.1 8.5-10.1 MG/DL Corrected Calcium 9.2 8.5-10.1 MG/DL Total Bilirubin 0.6 0.1-1.0 MG/DL Aspartate Amino Transf (AST/SGOT) 64 H 5-34 U/L Alanine Aminotransferase (ALT/SGPT) 23 0-55 U/L Alkaline Phosphatase 60 40-136 U/L Troponin I < 0.30 <0.30 NG/ML Total Protein 6.6 6.4-8.2 GM/DL Albumin 3.9 3.2-4.5 GM/DL Lipase 32 8-78 U/L Urine Color DARK YELLOW Urine Clarity SL CLOUDY Urine pH 5.5 5-9 Urine Specific [place] >=1.030 1.016-1.022 Urine Protein NEGATIVE NEGATIVE Urine Glucose (UA) NEGATIVE NEGATIVE Urine Ketones TRACE H NEGATIVE Urine Nitrite NEGATIVE NEGATIVE Urine Bilirubin 1+ H NEGATIVE Urine Urobilinogen 1.0 < = 1.0 MG/DL Urine Leukocyte Esterase 1+ H NEGATIVE Urine RBC (Auto) 2+ H NEGATIVE Urine RBC 5-10 H /HPF Urine WBC 10-25 H /HPF Urine Squamous Epithelial Cells 5-10 /HPF Urine Crystals PRESENT H /LPF Urine Calcium Oxalate Crystals LARGE H /LPF Urine Bacteria MODERATE H /HPF Urine Casts NONE /LPF Urine Mucus LARGE H /LPF Urine Trichomonas MODERATE H /HPF Urine Culture Indicated YES My Orders Orders - ROVENSTJAKI MACK DO Ed Iv/Invasive Line Start (10/27/19 11:29) Cbc With Automated Diff (10/27/19 11:29) Comprehensive Metabolic Panel (10/27/19 11:29) Lipase (10/27/19 11:29) Urinalysis (10/27/19 11:29) Troponin I Fs (10/27/19 11:29) Ct Abdomen/Pelvis W (10/27/19 11:29) Fentanyl Injection (Sublimaze Injection (10/27/19 11:30) Ns Iv 1000 Ml (Sodium Chloride 0.9%) (10/27/19 11:30) Iohexol Injection (Omnipaque 350 Mg/Ml 1 (10/27/19 11:45) Received Contrast (Hold Metformin- Contr (10/27/19 11:45) Sodium Chloride Flush (Catheter Flush Sy (10/27/19 11:45) Ns (Ivpb) (Sodium Chloride 0.9% Ivpb Bag (10/27/19 11:45) Fentanyl Injection (Sublimaze Injection (10/27/19 12:45) Urine Culture (10/27/19 12:15) Medications Given in ED Current Medications Medications Dose Ordered Sig/Bronson Route Start Time Stop Time Status Last Admin Dose Admin Fentanyl Citrate 50 mcg ONCE ONCE IVP 10/27/19 11:30 10/27/19 11:32 DC 10/27/19 11:58 50 MCG Fentanyl Citrate 50 mcg ONCE ONCE IVP 10/27/19 12:45 10/27/19 12:46 DC 10/27/19 12:41 50 MCG Iohexol 100 ml ONCE ONCE IV 10/27/19 11:45 10/27/19 11:46 DC 10/27/19 13:20 100 ML Sodium Chloride 10 ml NEEDED PRN IV 10/27/19 11:45 10/27/19 13:20 10 ML Sodium Chloride 100 ml ONCE ONCE IV 10/27/19 11:45 10/27/19 11:46 DC 10/27/19 13:20 100 ML Vital Signs/I&O 10/27/19 11:19 Temp 35.9 Pulse 59 Resp 18 B/P (MAP) 130/87 (101) Pulse Ox 100 O2 Delivery Room Air Progress Progress Note : Time: 14:00 Progress Note feeling much better, pain resolved. * noted lab micro result of +Trich. Pt without vaginal DC of symptoms. Denies having sex for "a few years". Determined to be a lab (false +), likely artifact and will not treat. Pt advised to see PCP w any vaginal complaints, irriation, discharge or odor. She agrees and understands. Diagnostic Imaging Diagonstic Imaging: CT Comments IMPRESSION: 1. Abnormal appearance about the gallbladder with question of some gallbladder wall thickening and edema. There is asymmetric low attenuating fluid attenuation centrally with higher density contents peripherally. Possibility of underlying cholecystitis not excluded. Consideration for gallbladder ultrasound imaging. Common bile duct is also dilated of unknown etiology. 2. The gastrointestinal tract is largely collapsed without findings suggestive of obstruction or definitive inflammation. This likely results in the appearance of wall thickening. Dictated on workstation # [id number] Dict: 10/27/19 1335 Trans: 10/27/19 1347 [id number] Interpreted by: RIK ABEL DO Electronically signed by: Departure Impression Primary Impression: Abdominal pain Qualified Codes: R10.84 - Generalized abdominal pain Additional Impression: Biliary colic Disposition: HOME, SELF-CARE Condition: Improved Departure-Patient Inst. Referrals: [facility] (PCP) Primary Care Physician ALEJANDRINA VÁZQUEZ APRN (Family) Primary Care Physician Patient Instructions: Renal Colic (DC) Add. Discharge Instructions: Call PCP on 10/28 to schedule and outPt. GB ultrasound. All discharge instructions reviewed with patient and/or family. Voiced understanding. Scripts Ondansetron (Ondansetron Odt) 4 Mg Tab.rapdis 4 MG PO TID for Nausea, #10 TAB Prov: JAKI WHITTINGTON DO 10/27/19 Hydrocodone/Acetaminophen (Hydrocodone-Acetamin 5-325 mg) 1 Each Tablet 1 EACH PO Q4H for Pain, #20 TAB Prov: LEONARDOSTINEJAKI DO 10/27/19 LEONARDOSTINEJAKI DO Oct 27, 2019 11:35
[2019-10-27] MEDS ORDERED: IOHEXOL 350 MG/ML 100 ML (OMNIPAQUE 350) VIAL IV ONE (11:45)
[2019-10-27] MEDS ORDERED: NS 100 ML (IVPB) BAG IV ONE (11:45)
[2019-10-27] MEDS ORDERED: HOLD METFORMIN - RECEIVED CONTRAST 20 ML VIAL IV SCH (11:45)
[2019-10-27] MEDS ORDERED: CATHETER FLUSH 10 ML SYR IV PRN (11:45)
[2019-10-27 12:15] LABS: WHITE BLOOD COUNT 5.5 10^3/uL (4.3-11.0)
[2019-10-27 12:16] LABS: EOSINOPHILS % (AUTO) 1 % (0-10); HEMATOCRIT 46 % (35-52); HEMOGLOBIN 15.9 G/DL (11.5-16.0); LYMPHOCYTES # (AUTO) 1.7 X 10^3 (1.0-4.0); LYMPHOCYTES % (AUTO) 31 % (12-44); MEAN CORPUSCULAR HEMOGLOBIN 30 PG (25-34); MEAN CORPUSCULAR HGB CONC 34 G/DL (32-36); MEAN CORPUSCULAR VOLUME 88 FL (80-99); MEAN PLATELET VOLUME 11.4 FL (7.4-10.4); MONOCYTES # (AUTO) 0.5 X 10^3 (0.0-1.0); MONOCYTES % (AUTO) 10 % (0-12); NEUTROPHILS # (AUTO) 3.2 X 10^3 (1.8-7.8); PLATELET COUNT 195 10^3/uL (130-400); RED CELL DISTRIBUTION WIDTH 12.4 % (10.0-14.5)
[2019-10-27 12:17] LABS: BASOPHILS % (AUTO) 0 % (0-10); EOSINOPHILS # (AUTO) 0.1 10^3/uL (0.0-0.3); NEUTROPHILS % (AUTO) 58 % (42-75)
[2019-10-27 12:48] LABS: BILIRUBIN,URINE 1+ (NEGATIVE); CLARITY,URINE SL CLOUDY; COLOR,URINE DARK YELLOW; GLUCOSE, URINE (UA) NEGATIVE (NEGATIVE); KETONES,URINE TRACE (NEGATIVE); NITRITE,URINE NEGATIVE (NEGATIVE); PH,URINE 5.5 (5-9); PROTEIN,URINE NEGATIVE (NEGATIVE)
[2019-10-27 12:49] LABS: BACTERIA,URINE MODERATE /HPF; CALCIUM OXALATE CRYSTALS,UR LARGE /LPF; LEUKOCYTE ESTERASE ,URINE 1+ (NEGATIVE)
[2019-10-27 12:50] LABS: TRICHOMONAS,URINE MODERATE /HPF
[2019-10-27 13:02] LABS: ALANINE AMINOTRANSFERASE 23 U/L (0-55); ALKALINE PHOSPHATASE 60 U/L (40-136); BILIRUBIN,TOTAL 0.6 MG/DL (0.1-1.0); BUN/CREATININE RATIO 19; CALCIUM 9.1 MG/DL (8.5-10.1); CARBON DIOXIDE 24 MMOL/L (21-32); CHLORIDE 107 MMOL/L (98-107); CREATININE SERUM 0.81 MG/DL (0.60-1.30); GFR ESTIMATED > 60; GLUCOSE 110 MG/DL (70-105); SODIUM 141 MMOL/L (135-145); TOTAL PROTEIN 6.6 GM/DL (6.4-8.2)
[2019-10-27 13:03] LABS: ALBUMIN 3.9 GM/DL (3.2-4.5); LIPASE 32 U/L (8-78)
--- NOTE | 2019-10-27 13:48 | Diagnostic Imaging Report ---
PROCEDURE: CT abdomen and pelvis with contrast. TECHNIQUE: Multiple contiguous axial images were obtained through the abdomen and pelvis after administration of intravenous contrast. Auto Exposure Controls were utilized during the CT exam to meet ALARA standards for radiation dose reduction. INDICATION: Intermittent epigastric abdominal pain x2 days. Worsening symptoms today. CORRELATION STUDY: None. FINDINGS: LOWER THORAX: Clear. LIVER: Slight heterogeneous lower attenuation suggesting some degree of hepatic steatosis. No definitive focal lesion. GALLBLADDER: Gallbladder is present. There is asymmetric rounded low-attenuation, cystic masslike area at the central aspect of the gallbladder. More distally is of higher contents. There also appears to be suggestion of perhaps some gallbladder wall thickening. Common bile duct is also mildly dilated to approximately 11 mm. SPLEEN: A few calcified granulomas. Otherwise unremarkable. PANCREAS: Very mild prominence of the main pancreatic duct. No definitive peripancreatic inflammatory changes. ADRENAL GLANDS: Unremarkable. KIDNEYS: Normal configuration. No calcification or obstruction. ABDOMINAL AORTA: Unremarkable, nonaneurysmal. GASTROINTESTINAL TRACT: Stomach contains small amount of fluid but is relatively collapsed with resultant gastric wall thickening. Small bowel without findings to suggest obstruction. Colon is relatively collapsed. No abdominal ascites or free air. URINARY BLADDER: Decompressed. REPRODUCTIVE: Post hysterectomy. OSSEOUS STRUCTURES: No acute abnormality. OTHER: None. IMPRESSION: 1. Abnormal appearance about the gallbladder with question of some gallbladder wall thickening and edema. There is asymmetric low attenuating fluid attenuation centrally with higher density contents peripherally. Possibility of underlying cholecystitis not excluded. Consideration for gallbladder ultrasound imaging. Common bile duct is also dilated of unknown etiology. 2. The gastrointestinal tract is largely collapsed without findings suggestive of obstruction or definitive inflammation. This likely results in the appearance of wall thickening. Dictated by: Dictated on workstation # [id number]
[2019-10-27] MEDS ORDERED: HYDR-83 PO (14:03)
[2019-10-27] MEDS ORDERED: ONDA4TAB11 PO (14:03)
[2019-10-27 14:22] VITALS: BP 113/67
== END 2019-10-27 14:21 | disposition home or self-care (01) ==
LOC: EDUNIT# 11:19 → ER FS 11:21
DX: R10.84 Generalized abdominal pain (principal); K80.50 Calculus of bile duct without cholangitis or cholecystitis without obstruction; F17.210 Nicotine dependence, cigarettes, uncomplicated; J44.9 Chronic obstructive pulmonary disease, unspecified
CPT/HCPCS: 36415; 74177; 80053; 81000; 83690; 84484; 85025; 87088

== ENCOUNTER 2019-11-21 12:51 | Emergency (ER) | payer SELFPAY ==
[~2019-11-21] VITALS: Ht 160 cm; Wt 76.9 kg
[~2019-11-21 12:51] MED LIST changes: +HYDR-83 PO; +ONDA4TAB11 PO
--- NOTE | 2019-11-21 13:17 | ED Integumentary General ---
General Chief Complaint: Skin/Wound Problems Stated Complaint: L SIDE ABD WOUND BLEEDING Nursing Triage Note: patient reports abdomen drainage from surgical wound on 11/18 Source: patient Exam Limitations: no limitations History of Present Illness Date Seen by Provider: Nov 21, 2019 Time Seen by Provider: 13:05 Initial Comments The patient is a pleasant 59-year-old female who presents for evaluation of a wound check. She states that she had her gallbladder taken out by Dr. Kaplan on Tuesday and when she was getting out of the shower today noticed that one of the dressings had some blood on it. She has not changed the dressing since the surgery. She denies any pain, blood noted coming from the wound, fevers or chills, or any other complaints. She is alert and oriented 4, calm, and appears to be in no distress this time. Timing/Duration: this afternoon Severity: mild Allergies and Home Medications Allergies Coded Allergies: No Known Drug Allergies (Unverified , 01/30/19) Home Medications Aspirin 81 Mg Tablet.dr, 81 MG PO DAILY, (Reported) Hydrocodone Bit/Acetaminophen 1 Tab Tab, 1 EACH PO Q4-6HR PRN for PAIN-MODERATE Prescribed by: SHREYA RAGLAND on 08/22/19 0901 Hydrocodone/Acetaminophen 1 Each Tablet, 1 EACH PO Q4H Prescribed by: JAKI WHITTINGTON on 10/27/19 1403 Ondansetron 4 Mg Tab.rapdis, 4 MG PO TID Prescribed by: JAKI WHITTINGTON on 10/27/19 1403 Polyethylene Glycol 3350 17 Gm Powd.pack, 17 GM PO BID PRN Prescribed by: NOLAN ARAUJO on 01/23/19 1240 Prednisone 20 Mg Tab, 40 MG PO DAILY Prescribed by: SHREYA RAGLAND on 08/22/19 0901 Patient Home Medication List Home Medication List Reviewed: Yes Review of Systems Review of Systems Constitutional: no symptoms reported EENTM: no symptoms reported Respiratory: no symptoms reported Cardiovascular: no symptoms reported Gastrointestinal: no symptoms reported Genitourinary: no symptoms reported Musculoskeletal: no symptoms reported Skin: other (abdominal wound check/dressing with blood) Psychiatric/Neurological: No Symptoms Reported Endocrine: No Symptoms Reported Hematologic/Lymphatic: No Symptoms Reported All Other Systems Reviewed Negative Unless Noted: Yes Past Ouyfibu-Aumywy-Wrzezh Hx Past Med/Social Hx: Reviewed Nursing Past Med/Soc Hx Patient Social History Alcohol Use: Denies Use Recreational Drug Use: No Smoking Status: Current Everyday Smoker Type Used: Cigarettes 2nd Hand Smoke Exposure: No Recent Foreign Travel: No Contact w/Someone Who Travel: No Recent Infectious Disease Expo: No Recent Hopitalizations: No Seasonal Allergies Seasonal Allergies: No Past Medical History Surgeries: Yes Appendectomy, Gallbladder, Hysterectomy Respiratory: Yes (Tobaccoism) COPD Cardiac: No Neurological: Yes Stroke, TIA, Vertigo 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 Genitourinary: No Gastrointestinal: No Musculoskeletal: No Endocrine: No HEENT: No Cancer: No Psychosocial: Yes Anxiety, PTSD, Bipolar, Depression Integumentary: No Blood Disorders: No Family Medical History No Pertinent Family Hx Physical Exam Vital Signs Vital Signs - First Documented 11/21/19 13:03 Temp 36.5 Pulse 78 Resp 18 B/P (MAP) 147/95 (112) Pulse Ox 98 Capillary Refill : Less Than 3 Seconds General Appearance: WD/WN, no apparent distress HEENT: PERRL/EOMI, pharynx normal Cardiovascular: regular rate, rhythm, no edema, no JVD Respiratory: normal breath sounds, no respiratory distress Gastrointestinal: normal bowel sounds, non tender, soft Back: normal inspection, no CVA tenderness Neurologic/Psychiatric: no motor/sensory deficits, alert, normal mood/affect, oriented x 3 Skin: normal color, warm/dry, other (right lower abdominal wall wound with Steri-Strips intact, 1 mm of wound dehiscence noted, otherwise unremarkable, no active bleeding, no tenderness or swelling, appears to be healing well) Progress/Results/Core Measures Results/Orders Vital Signs/I&O 11/21/19 13:03 Temp 36.5 Pulse 78 Resp 18 B/P (MAP) 147/95 (112) Pulse Ox 98 Blood Pressure Mean: 112 Progress Progress Note : Progress Note @1320 - patient advised to change her dressings daily or when her surgeon jamie mmended and to follow up with her surgeon in the next 2-3 days for wound check. The patient is stable for discharge home at this time. She expresses verbal understanding and agreement with the plan. Departure Impression Primary Impression: Encounter for wound re-check Disposition: 01 HOME, SELF-CARE Condition: Stable Departure-Patient Inst. Decision time for Depature: 13:23 Referrals: [facility]/ (PCP) Primary Care Physician ALEJANDRINA VÁZQUEZ APRN (Family) Primary Care Physician Patient Instructions: Wound Care (DC) Add. Discharge Instructions: Follow-up with your general surgeon in the next 2-3 days for wound check. Keep the wound clean and dry. Change your dressings every 24 hours or as directed by her surgeon. Return to the emergency department immediately for new or worsening symptoms. HOLLIS CARRASCO DO Nov 21, 2019 13:17
--- OUTSIDE RECORDS SUMMARY | 2019-11-21 13:28 | XMS REPORT | Continuity of Care Document ---
Author Organization Unknown Address Unknown Phone Unavailable Allergies Active Description Code Type Severity Reaction Onset Reported/Identified Relationship to Patient Clinical Status Yes NO NAME AVAILABLE 29104 DRUG N/A N/A Yes No Known Drug Allergies [id number] Drug Allergy Unknown N/A 01/30/2019 Medications Medication [...] Diagnosis Diagnosed By 09/12/2017 CHINEDU LIU V [id number] Suicidal 09/12/2017 CHINEDU LIU P F33.3 Major [...] BOTH CERVIX AND UTER 06/14/2019 ALEJANDRINA VÁZQUEZ DRY CLEANING MACHINE OPERATOR Ot M25.552 PAIN IN LEFT HIP 06/14/2019 ALEJANDRINA VÁZQUEZ DRY CLEANING MACHINE OPERATOR Ot M48.56XA COLLAPSED VERTEBRA, NEC, LUMBAR REGION, 06/14/2019 ALEJANDRINA VÁZQUEZ DRY CLEANING MACHINE OPERATOR Ot M54.40 LUMBAGO WITH SCIATICA, UNSPECIFIED SIDE 06/18/2019 ALEJANDRINA VÁZQUEZ DRY CLEANING MACHINE OPERATOR Ot M25.552 PAIN IN LEFT HIP 06/18/2019 GURPREET, ALEJANDRINA Saunders DRY CLEANING MACHINE OPERATOR Ot M48.56XA COLLAPSED VERTEBRA, NEC, LUMBAR REGION, 06/18/2019 ALEJANDRINA VÁZQUEZ DRY CLEANING MACHINE OPERATOR Ot M54.40 LUMBAGO WITH SCIATICA, UNSPECIFIED SIDE 06/21/2019 ALEJANDRINA VÁZQUEZ DRY CLEANING MACHINE OPERATOR Ot M25.552 PAIN IN LEFT HIP 06/21/2019 ALEJANDRINA VÁZQUEZ DRY CLEANING MACHINE OPERATOR Ot M48.56XA COLLAPSED VERTEBRA, NEC, LUMBAR REGION, 06/21/2019 ALEJANDRINA VÁZQUEZ DRY CLEANING MACHINE OPERATOR Ot M54.40 LUMBAGO WITH SCIATICA, UNSPECIFIED SIDE [...] 08/22/2019 SHREYA RAGLAND MD Ot Z79. 82 [facility] (CURRENT) USE OF ASPIRIN 08/22/2019 SHREYA RAGLAND [...] PAIN IN LEFT HIP 08/22/2019 ALEJANDRINA VÁZQUEZ DRY CLEANING MACHINE OPERATOR Ot M48.56XA COLLAPSED VERTEBRA, NEC, LUMBAR REGION, [...] 08/27/2019 SHREYA RAGLAND MD Ot Z79. 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 73 PRSNL HX OF TIA (TIA), AND CEREB INFRC W 08/27/2019 SHREYA RAGLAND MD, Ot Z87. 81 PERSONAL HISTORY OF (HEALED) TRAUMATIC F 08/27/2019 SHREYA RAGLAND MD, Ot Z90. 49 ACQUIRED ABSENCE OF OTHER SPECIFIED PART 08/27/2019 SHREYA RAGLAND MD, Ot Z90.710 ACQUIRED ABSENCE OF BOTH CERVIX AND UTER 09/12/2019 ALEJANDRINA VÁZQUEZ DRY CLEANING MACHINE OPERATOR Ot M25.552 PAIN IN LEFT HIP 09/12/2019 ALEJANDRINA VÁZQUEZ APRN Ot M48.56XA COLLAPSED VERTEBRA, NEC, LUMBAR REGION, 09/12/2019 ALEJANDRINA VÁZQUEZ APRN Ot M54.40 LUMBAGO WITH SCIATICA, UNSPECIFIED SIDE 09/12/2019 NATHAN SIERRA Ot M17.12 UNILATERAL PRIMARY OSTEOARTHRITIS, LEFT 10/27/2019 ALEJANDRINA VÁZQUEZ DRY CLEANING MACHINE OPERATOR Ot M25.552 PAIN IN LEFT HIP 10/27/2019 GURPREET, ALEJANDRINA Saunders APRN Ot M48.56XA COLLAPSED VERTEBRA, NEC, LUMBAR REGION, 10/27/2019 ALEJANDRINA VÁZQUEZ APRN Ot M54.40 LUMBAGO WITH SCIATICA, UNSPECIFIED SIDE 10/27/2019 NATHAN SIERRA Ot M17.12 UNILATERAL PRIMARY OSTEOARTHRITIS, LEFT 10/30/2019 ROVENSTINE DO, JAKI L Ot F17.210 NICOTINE DEPENDENCE, CIGARETTES, UNCOMPL 10/30/2019 ROVENSTINE DOADRIENEN L Ot J44.9 CHRONIC OBSTRUCTIVE PULMONARY DISEASE, U 10/30/2019 ROVENSTINE DO, JAKI L Ot K80.50 CALCULUS OF BILE DUCT W/O CHOLANGITIS OR 10/30/2019 ROVENSTINE DO, JAKI L Ot R10.84 GENERALIZED ABDOMINAL PAIN Procedures There is no data. Results Test [...] pg/mL 200-1100 FOLATE, SERUM 14.7 ng/mL NRG Complete blood count (CBC) with automate d white blood cell (WBC) differential - 10/27/19 11:50 Blood leukocytes automated count (number/volume) 5.5 10*3/uL 4.3-11.0 Blood erythrocytes automated count (number/volume) 5.28 10*6/uL 4.35-5.85 Venous blood hemoglobin measurement (mass/volume) 15.9 g/dL 11.5-16.0 Blood hematocrit (volume fraction) 46 % 35-52 Automated erythrocyte mean corpuscular volume 88 [ foz_us] 80-99 Automated erythrocyte mean corpuscular h emoglobin (mass per erythrocyte) 30 pg 25-34 Automated erythrocyte mean corpuscular h emoglobin concentration measurement (mass/volume) 34 g/dL 32-36 Automated erythrocyte distribution width ratio 12. 4 % 10.0- 14.5 Automated blood platelet count (count/volume) 195 10*3/uL 130-400 Automated blood platelet mean volume measurement 11.4 [foz_us] 7.4-10.4 Automated blood neutrophils/100 leukocytes 58 % 42-75 Automated blood lymphocytes/100 leukocytes 31 % 12-44 Blood monocytes/100 leukocytes 10 % 0-12 Automated blood eosinophils/100 leukocytes 1 % 0-10 Automated blood basophils/100 leukocytes 0 % 0-10 Blood neutrophils automated count (number/volume) 3.2 10*3 1.8-7.8 Blood lymphocytes automated count (number/volume) 1.7 10*3 1.0-4.0 Blood monocytes automated count (number/volume) 0. 5 10*3 0.0-1.0 Automated eosinophil count 0.1 10*3/uL 0 .0-0.3 Automated blood basophil count (count/volume) 0.0 10*3/uL 0.0-0.1 Comprehensive metabolic panel - 10/27/19 12:12 Serum or plasma sodium measurement (moles/volume) 141 mmol/L 135-145 Serum or plasma potassium measurement (moles/volume) 4.0 mmol/L 3.6-5.0 Serum or plasma chloride measurement (moles/volume) 107 mmol/L 98-107 Carbon dioxide 24 mmol/L 21-32 Serum or plasma anion gap determination (moles/volume) 10 mmol/L 5-14 Serum or plasma urea nitrogen measurement (mass/volume ) 15 mg/dL 7-18 Serum or plasma creatinine measurement (mass/volume) 0.81 mg/dL 0.60-1.30 Serum or plasma urea nitrogen/creatinine mass ratio 19 NRG Serum or plasma creatinine measurement w ith calculation of estimated glomerular filtration rate > NRG Serum or plasma glucose measurement (mass/volume) 110 mg/dL 70-105 Serum or plasma calcium measurement (mass/volume) 9.1 mg/dL 8.5-10.1 Serum or plasma total bilirubin measurement (mass/volu me) 0.6 mg/dL 0.1-1.0 Serum or plasma alkaline phosphatase kevin surement (enzymatic activity/volume) 60 U/L 40-136 Serum or plasma aspartate aminotransfera se measurement (enzymatic activity/volume) 64 U/L 5-34 Serum or plasma alanine aminotransferase measurement (enzymatic activity/volume) 23 U/L 0-55 Serum or plasma protein measurement (mass/volume) 6.6 g/dL 6.4-8.2 Serum or plasma albumin measurement (mass/volume) 3.9 g/dL 3.2-4.5 CALCIUM CORRECTED 9.2 mg/dL 8.5-10.1 TROPONIN I FS - 10/27/19 12:12 TROPONIN I FS < 0.30 <0.30 Lipase - 10/27/19 12:12 Lipase 32 U/L 8-78 Complete urinalysis with reflex to cultu re - 10/27/19 12:15 Urine color determination DARK YELLOW N RG Urine clarity determination SL CLOUDY N RG Urine pH measurement by test strip 5.5 5-9 Specific gravity of urine by test strip >= 1.016-1.022 Urine protein assay by test strip, semi-quantitative NEGATIVE NEGATIVE Urine glucose detection by automated test strip NE GATIVE NEGATIVE Erythrocytes detection in urine sediment by light micr oscopy 2+ NEGATIVE Urine ketones detection by automated test strip TR GEMMA NEGATIVE Urine nitrite detection by test strip NEGATIVE NEGATIVE Urine total bilirubin detection by test strip 1+ NEGATIVE Urine urobilinogen measurement by automated test strip (mass/volume) 1.0 mg/dL < = 1.0 Urine leukocyte esterase detection by dipstick 1+ NEGATIVE Automated urine sediment erythrocyte cou nt by microscopy (number/high power field) [HPF] NRG Automated urine sediment leukocyte count by microscopy (number/high power field) [HPF] NRG Bacteria detection in urine sediment by light microsco py MODERATE NRG Squamous epithelial cells detection in u rine sediment by light microscopy 5-10 NRG Crystals detection in urine sediment by light microsco py PRESENT NRG Casts detection in urine sediment by light microscopy NONE NRG Mucus detection in urine sediment by light microscopy LARGE NRG Complete urinalysis with reflex to culture YES NRG Calcium oxalate crystals detection in ur ine sediment by light microscopy LARGE NRG Urine Trichomonas species detection by light microscop y MODERATE NRG Bacterial urine culture - 10/27/19 12:15 Bacterial urine culture 3 OR MORE NRG COLONY COUNT >100,000/ML NRG SUSCEPTIBILITY GRAM POSITIVE; SUGGESTING PROBABLE NRG MRSA SCREEN COLLECTION CONTAMINATION WITH SKIN MELA RA NRG RAPID ID NO SUSCEPTIBILITY PERFORMED N RG Encounters ACCT No. Visit Date/Time Discharge Status Pt. Type Provider Facility Loc./Unit Complaint [id number] 11/01/2019 08:00:00 11/01/2019 23:59: 59 CLS Outpatient ALEJANDRINA VÁZQUEZ [facility] [id number] 08/21/2019 08:20:00 Document Registration [id number] 06/06/2019 08:15:00 Document Registration [id number] 04/12/2018 13:00:00 Document Registration [id number] 10/27/2019 11:21:00 14:21:00 DIS Outpatient JAKI WHITTINGTON DO [facility] ER FS ABD PAIN [id number] 08/22/2019 07:38:00 23:59:59 CLS Emergency ELLYN CUETO, SHREYA Olson [facility] ER FS FALL; RT HIP INJ [id number] 07/16/2019 14:44:00 23:59:59 CLS Outpatient NATHAN SIERRA [facility] RAD FS M25.562 [id number] 07/07/2019 23:52:00 00:28:00 DIS Emergency SHREYA RAGLAND MD [facility] ER FS COUGH [id number] 06/21/2019 19:28:00 20:49:00 DIS Emergency YINA WONG MD [facility] ER FS LT HIP PAIN [id number] 06/12/2019 08:29:00 23:59:59 CLS Outpatient ALEJANDRINA VÁZQUEZ APRN [facility] RAD FS M54.5 [id number] [id number] 01/30/2019 21:29:00 23:42:00 DIS Emergency LOIS ELIZALDE DO [facility] ER FS LOW ABD CRAMPING [id number] 01/23/2019 11:39:00 13:16:00 DIS Emergency GAYLE CUETO, NOLAN Hall [facility] ER FS ABD CRAMPS [id number] 12/20/2018 21:57:00 23:17:00 DIS Emergency ABIGAIL CUETO, CLINT Malin [facility] ER FS LT HIP PAIN S JOSE ANTONIO [id number] 06/21/2019 19:29:00 Document Registration [id number] 09/08/2017 20:38:00 8 11:40:00 DIS Inpatient CHINEDU LUI [facility] [id number] 09/08/2017 22:02:19 Document Registration
[2019-11-21 13:32] VITALS: BP 147/95
== END 2019-11-21 13:32 | disposition home or self-care (01) ==
LOC: EDUNIT# 12:51 → ER FS 12:54
DX: T81.31XA Disruption of external operation (surgical) wound, not elsewhere classified, initial encounter (principal); J44.9 Chronic obstructive pulmonary disease, unspecified; F17.210 Nicotine dependence, cigarettes, uncomplicated; Z86.73 Personal history of transient ischemic attack (TIA), and cerebral infarction without residual deficits; Z79.82 Long term (current) use of aspirin; Z79.52 Long term (current) use of systemic steroids
CPT/HCPCS: 99282

== ENCOUNTER 2023-04-13 05:34 | Outpatient (CLI) | payer MEDICARE, MEDICAID ==
[~2023-04-13] VITALS: Ht 160 cm; Wt 72.3 kg
[~2023-04-13 05:34] MED LIST changes: -HYDR-83 PO
[2023-04-13] MEDS ORDERED: CALC600T91 PO (17:01)
[2023-04-13] MEDS ORDERED: MULT-1136 PO (17:01)
[2023-04-13] MEDS ORDERED: TRZ50T PO (17:01)
[2023-04-13] MEDS ORDERED: LURA20TA2 PO (17:01)
[2023-04-13] MEDS ORDERED: LAMO25TA8 PO (17:01)
== END 2023-04-13 17:30 | disposition home or self-care (01) ==
LOC: PREOP 05:34
PROVIDERS: ATTEND Orthopaedic Surgery
DX: Z01.818 Encounter for other preprocedural examination (principal)

== ENCOUNTER 2023-04-20 07:25 | Day surgery (SDC) | payer MEDICARE, MEDICAID ==
--- NOTE | 2023-04-13 05:58 | HISTORY AND PHYSICAL ---
This will be for outpatient surgery on 04/20/2023 for right knee arthroscopy. HISTORY: The patient is a 63-year-old female with complaints of right knee pain. She fell on her knee in December on the anterior aspect. She had persistent pain. An MRI was obtained, which revealed bone edema of the patella with possible osteochondral fragment. She had some antecedent pain prior to her fall. Since her fall, has had marked activity limitations and because of this has elected to proceed with surgical intervention. REVIEW OF SYSTEMS: No chest pain, no shortness of breath. No dysuria. PAST SURGICAL HISTORY: Appendectomy, hysterectomy, wisdom tooth extraction. PAST MEDICAL HISTORY: Bipolar disorder, PTSD, back pain, COPD, CVA, depression, hyperlipidemia, tobacco use and vertigo. FAMILY HISTORY: Cancer, diabetes, hypertension and stroke. PRIMARY CARE PROVIDER: Dr. Mauro. ALLERGIES: No known allergies. SOCIAL HISTORY: The patient smokes half pack of cigarettes a day. Denies alcohol use. PHYSICAL EXAMINATION: GENERAL: The patient is well-developed, well-nourished, in no acute distress. HEENT: Normocephalic, atraumatic. Pupils equal, round, react to light. Oropharynx is clear. NECK: Supple. No lymphadenopathy. LUNGS: Clear to auscultation bilaterally. HEART: Regular rate and rhythm. ABDOMEN: Soft, nontender, nondistended. EXTREMITIES: The right knee demonstrates patellofemoral crepitus and pain with patellar loading. She has a slight effusion noted. No joint line tenderness. She is ligamentously stable in all planes. 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 PLAN: Right knee arthroscopy with chondroplasty, possible loose body removal. The risks, benefits, options, ramifications and recovery have been discussed at length with the patient. She understands and wishes to proceed. This will be for surgery on 04/20/2023. Job ID: [id number] DocumentID: [id number] Dictated Date: 04/01/2023 13:35:40 Senior Catering Sales Manager Date: 04/01/2023 15:38:00 Dictated By: GARRETT SEQUEIRA MD
[2023-04-20] VITALS (10 sets, daily range): BP systolic 117–130; BP diastolic 65–87
[~2023-04-20] VITALS: Ht 160 cm; Wt 72.3 kg
[~2023-04-20 07:25] MED LIST changes: +CALC600T91 PO; +HYDR-3817 PO; +LAMO25TA8 PO; +LURA20TA2 PO; +MULT-1136 PO; +TRZ50T PO
[2023-04-20] MEDS ORDERED: HYDROcodone/ACETAMINOPHEN 7.5 MG/325 MG TABLET PO PRN (07:30)
--- NOTE | 2023-04-20 07:36 | Progress Note-Pre Operative ---
Pre-Operative Progress Note Date of Available H&P: Apr 13, 2023 Date H&P Reviewed: Apr 20, 2023 Time H&P Reviewed: 07:36 Changes from last HP none Pre-Operative Diagnosis: right knee chondromalacia GARRETT SEQUEIRA MD Apr 20, 2023 07:36
--- NOTE | 2023-04-20 07:37 | Progress Note-Post Operative ---
Post-Operative Progess Note Surgeon (s)/Oral Communication Instructor (s) Surgeon GARRETT SEQUEIRA MD Oral Communication Instructor: Ricardo Finn Pre-Operative Diagnosis right knee chondromalacia Post-Operative Diagnosis right knee chondromalacia Procedure & Operative Findings Date of Procedure 04/20/23 Procedure Performed/Findings right knee arthroscopic chondroplasty Anesthesia Type GETA Estimated Blood Loss Estimated blood loss (mL): minimal Specimens/Packing Packing: none GARRETT SEQUEIRA MD Apr 20, 2023 07:37
[2023-04-20] MEDS ORDERED: LACTATED RINGERS 1,000 ML 1,000 ML IV PRN (08:45)
[2023-04-20] MEDS ORDERED: ceFAZolin INJECTION 2,000 MG in NS (IVPB) 50 ML 50 ML IV ONE (08:45)
[2023-04-20] MEDS ORDERED: CATHETER FLUSH 10 ML SYR IVP PRN (09:00)
[2023-04-20] MEDS ORDERED: MIDAZOLAM INJ 2 MG/2 ML VIAL ONE ×2 (09:26→10:20)
[2023-04-20] MEDS ORDERED: MIDAZOLAM INJ 2 MG/2 ML VIAL IVP ONE (09:30)
[2023-04-20] MEDS ORDERED: morphine PRESERVATIVE free 10 MG/10 ML AMP ONE (10:10)
[2023-04-20] MEDS ORDERED: BUPIVACAINE 0.25% 30 ML VIAL ONE (10:10)
[2023-04-20] MEDS ORDERED: SEVOFLURANE (ULTANE) 15 ML INHAL SOLN ONE ×2 (10:20→11:12)
[2023-04-20] MEDS ORDERED: proPOfol INJECTION 200 MG/20 ML VIAL IV ONE (10:20)
[2023-04-20] MEDS ORDERED: fentaNYL INJECTION 100 MCG/2 ML VIAL ONE (10:20)
[2023-04-20] MEDS ORDERED: ONDANSETRON INJECTION 4 MG/2 ML (SDV) ONE (10:20)
[2023-04-20] MEDS ORDERED: LIDOCAINE PF 2% 5 ML VIAL ONE (10:20)
[2023-04-20] MEDS ORDERED: TRM50T PO (10:50)
--- NOTE | 2023-04-20 11:19 | Progress Note-Post Operative ---
Post-Operative Progess Note Surgeon (s)/Color Room Attendant (s) Surgeon GARRETT SEQUEIRA MD Color Room Attendant: Ricardo Finn Pre-Operative Diagnosis right knee chondromalacia Post-Operative Diagnosis right knee chondromalacia of the trochlea and medial femoral condyle Procedure & Operative Findings Date of Procedure 04/20/23 Procedure Performed/Findings right knee arthroscopic chondroplasty of the medial femoral condyle and trochlea Anesthesia Type GETA Estimated Blood Loss Estimated blood loss (mL): minimal Specimens/Packing Specimens Removed none Packing: none GARRETT SEQUEIRA MD Apr 20, 2023 11:19
--- NOTE | 2023-04-20 11:23 | Anesthesia-General Post-Op ---
General Patient Condition Mental Status/LOC: Same as Preop Cardiovascular: Satisfactory Nausea/Vomiting: Absent Respiratory: Satisfactory Pain: Controlled Complications: Absent Post Op Complications Complications None Follow Up Care/Instructions Patient Instructions None needed. Anesthesia/Patient Condition Patient Condition Patient is doing well, no complaints, stable vital signs, no apparent adverse anesthesia problems. No complications reported per nursing. KITTY HEREDIA CRNA Apr 20, 2023 11:23
[2023-04-20] MEDS ORDERED: ONDANSETRON INJECTION 4 MG/2 ML (SDV) IVP PRN (11:30)
[2023-04-20] MEDS ORDERED: fentaNYL INJECTION 100 MCG/2 ML VIAL IVP ONE (11:30)
[2023-04-20] MEDS ORDERED: MEPERIDINE INJ 50 MG/ML VIAL IVP ONE (11:30)
[2023-04-20] MEDS ORDERED: morphine INJ 10 MG/ML 1ML (SYR OR VIAL) IVP ONE (11:30)
[2023-04-20] MEDS ORDERED: morphine PRESERVATIVE free 10 MG/10 ML AMP INJ ONE (11:41)
[2023-04-20] MEDS ORDERED: BUPIVACAINE 0.25% 30 ML VIAL INJ ONE (11:41)
--- NOTE | 2023-04-20 14:09 | Physical Therapy Ortho Eval ---
PT Orthopedic Evaluation Type of Surgery Knee Scope Prior Level of Function Current Living Status: Alone Locomotion (Upon Admit): Independent Established Durable Medical Eq: Straight Cane Subjective Subjective Patient lying supine in bed upon PT arrival, agreeable to treatment. Patient rates pain at 2/10 currently. Entry Into Home: Stairs With Railing Steps Into Home: 5 Motor Control Motor Control: Motor Control WNL ROM ROM: WFL, except focal deficit Strength Strength: Gen Weak,No Focal Deficit Transfer SCALE: Activities may be completed with or without assistive devices. 8-Xcnpcamkmp-kwcisgz completes the activity by him/herself with no assistance from a helper. 5-Set-up or Clean-up Assistance-helper sets up or cleans up; patient completes activity. [place] assists only prior to or following the activity. 4-Supervision or Touching Assistance-helper provides verbal cues and/or touching/steadying and/or contact guard assistance as patient completes activity. Assistance may be provided throughout the activity or intermittently. 3-Partial/Moderate Assistance-helper does LESS THAN HALF the effort. [place] lifts, holds or supports trunk or limbs, but provides less than half the effort. 2-Substantial/Maximal Assistance-helper does MORE THAN HALF the effort. [place] lifts or holds trunk or limbs and provides more than half the effort. 2-Rzdzmoxbi-vnykqu does ALL the effort. Patient does none of the effort to complete the activity. Or, the assistance of 2 or more helpers is required for the patient to complete the activity. If activity was not attempted, code reason: 7-Patient Refused. 9-Not Applicable-not attempted and the patient did not perform the activity before the current illness, exacerbation or injury. 10-Not Attempted due to Environmental Limitations-(lack of equipment, weather restraints, etc.). 88-Not Attempted due to Medical Conditions or Safety Concerns. Transfers (B, C, W/C) (QC): 4 Gait Gait Assistive Device: FWW Right Lower Extremity: Right Weight Bearing Status RLE: Weight Bearing/Tolerated Left Lower Extremity: Left Weight Bearing Status LLE: Full Weight Bearing Gait (QC): 4 Distance: 60' Stairs #of Steps: 5 Walking Assistive Device: Walker Treatment Rendered Treatment: Therapeutic Exercises, Gait Train, Step Train Exercise Instruction: Quad Sets, Straight Leg Raise, Heel Slides Assessment/Goals Goal Time Frame: 1 Visit Understands HEP: Yes Safe Ambulation: Yes Plan Treatment Plan: Discharge Time Time In: 1313 Time Out: 1323 Total Billed Treatment Time: 10 Billed Treatment Time Visit, NANCI SANON PT Apr 20, 2023 14:09
--- NOTE | 2023-04-20 16:18 | OPERATIVE REPORT ---
DATE OF SERVICE: 04/20/2023 PREOPERATIVE DIAGNOSIS: Right knee chondromalacia patella. POSTOPERATIVE DIAGNOSES: 1. Right knee chondromalacia of the trochlea. 2. Right knee chondromalacia of the medial femoral condyle. PROCEDURE: 1. Right knee arthroscopic chondroplasty of the trochlea. 2. Right knee arthroscopic chondroplasty of medial femoral condyle. SURGEON: Azam Sequeira MD HOUSE RN: Ricardo Finn, who assisted throughout the procedure and closed the incisions. ANESTHESIA: General endotracheal by Ricardo Romero CRNA. TOURNIQUET TIME: Not applicable. ESTIMATED BLOOD LOSS: Minimal. DRAINS: None. COMPLICATIONS: None. POSTOPERATIVE PLAN: Routine arthroscopy protocol. The patient was transferred to the recovery room awake and stable condition. STATEMENT OF MEDICAL NECESSITY: The patient is a 63-year-old female with complaints of right anterior knee pain, catching, locking and swelling. She had patellofemoral crepitus and pain with patellar loading. She tried rest, activity modifications, anti-inflammatories without relief. Due to functional impairment and failure to improve with conservative measures, the patient elected to proceed with surgical intervention. Examination under anesthesia revealed range of motion of 0/0/135 with negative Tiff, negative anterior and posterior drawer. No varus or valgus laxity and negative pivot shift. ARTHROSCOPIC FINDINGS: The patella demonstrated no gross chondral abnormalities. The trochlea demonstrated grade III chondral flaps centrally in a 15 x 15 area. The medial and lateral gutters were clear. The ACL and PCL were intact. Lateral compartment demonstrated no meniscal or chondral pathology. The medial compartment demonstrated no meniscal pathology; however, there were grade II chondral flaps of the central portion of the femoral epicondyle in a 15 x 15 area. DESCRIPTION OF PROCEDURE: After risks and benefits of the procedure were discussed and questions were answered and informed consent was signed and placed on chart, the operative site was confirmed in the preoperative holding area initialed by surgeon. The patient was then transported to the operating room and after adequate levels of general endotracheal anesthetic were obtained, a timeout was called, confirming the operative site. Examination under anesthesia was performed with the above findings noted. The right lower extremity was prepped and draped in the usual sterile fashion. Knee joint was injected with 60 mL fluid and a standard inferolateral portal was placed for the arthroscope under direct visualization and inferior medial portal was created. The menisci cruciates carefully probed with the above findings noted. The unstable chondral flaps on the trochlea were debrided with a shaver back to a stable edge. Scope was then redirected into the medial compartment and the unstable chondral flaps in the medial femoral condyle were debrided with a shaver back to a stable edge. The knee was copiously irrigated. The port sites were closed with 4-0 nylon in simple interrupted fashion. Knee was injected with Duramorph. The port sites were infiltrated with plain Marcaine. A soft dressing was applied. The patient was transferred to recovery room awake and stable condition. Job ID: [id number] DocumentID: [id number] Dictated Date: 04/20/2023 11:18:43 [employer]obile B[employer] Straightener Date: 04/20/2023 16:16:00 Dictated By: AZAM SEQUEIRA MD
== END 2023-04-20 13:45 | disposition home or self-care (01) ==
LOC: SDC 07:25
PROVIDERS: ATTEND Orthopaedic Surgery
DX: M94.261 Chondromalacia, right knee (principal); F17.210 Nicotine dependence, cigarettes, uncomplicated
CPT/HCPCS: 87081